=== PATIENT | male | born 1970 | race Caucasian/White ===

== ENCOUNTER 2017-11-25 14:31 | Emergency (ER) | payer OTHER ==
[2017-11-25 14:48] VITALS: BP 170/83
--- NOTE | 2017-11-25 15:04 | UC ---
Cardiac HPI - HPI Summary HPI Summary: 47 year old male with history of HTN, Crohn's here with chest tightness that started few hours ago [employer]. Patient states he was working on his desk, developed chest tightness with no sob. No n/v/d. 08/07 with no radiation. No other complaints. - History of Current Complaint Chief Complaint: UCChestPain Stated Complaint: CHEST PAIN Time Seen by Provider: 11/25/17 14:38 Hx Obtained From: Patient Onset/Duration: Gradual Onset Initial Severity: Mild Pain Intensity: 2 Character: Fast Associated Signs & Symptoms: Positive: Anxiety - Allergy/Home Medications Allergies/Adverse Reactions: Allergies Allergy/AdvReac Type Severity Reaction Status Date / Time CT dye Allergy Intermediate Hives Uncoded 11/25/17 14:43 Home Medications: Home Medications amLODIPine TAB* [Norvasc 5 mg TAB*] mg PO DAILY 11/25/17 [History] PMH/Surg Hx/FS Hx/Imm Hx - Surgical History Surgical History: Yes Surgery Procedure, Year, and Place: bowel resection 2001. Bowel resection r/t adhesions removal and appendectomy. left parotid resection and radiation 2002 - Family History Known Family History: Positive: Hypertension - Social History Alcohol Use: Daily Alcohol Amount: 1 beer/night Substance Use Type: None Smoking Status (MU): Never Smoked Tobacco Have You Smoked in the Last Year: No Review of Systems Cardiovascular: Chest Pain All Other Systems Reviewed And Are Negative: Yes Physical Exam Triage Information Reviewed: Yes Appearance: Well-Appearing Vital Signs: Initial Vital Signs Temp 36.7 C 11/25/17 14:45 Pulse 84 11/25/17 14:45 Resp 14 11/25/17 14:45 BP 170/83 11/25/17 14:45 Pulse Ox 94 11/25/17 14:45 Eye Exam: Normal ENT Exam: Normal Dental Exam: Normal Neck exam: Normal Neck: Positive: 1 Respiratory Exam: Normal Cardiovascular: Positive: Other: - tachy No m/g/r Abdominal Exam: Normal Musculoskeletal Exam: Normal Neurological Exam: Normal Psychological Exam: Normal Skin Exam: Normal Diagnostics - EKG Cardiac Rate: Tachycardia, Other Rate Cardiac Rhythm: Sinus: Normal Ectopy: PVCs ST Segment: Non-Specific - Differential Diagnoses - Chest Pain Differential Diagnosis/HQI/PQRI: Acute FL, Chest Wall, Lower Respiratory Infection - Differential Diagnoses - Hypertension Differential Diagnosis/HQI PQRI: Hypertension - Differential Diagnoses - Palpitations Differential Diagnosis/HQI/PQRI: AV Block - Clinical Impression Provider Diagnoses: Chest pain Discharge - Sign-Out/Discharge Documenting (check all that apply): Discharge/Admit/Transfer - Discharge Plan Condition: Good Disposition: HOME Referrals: Edwin Florez, PER DIEM NURSE [Primary Care Provider] - Additional Instructions: Please go to the Emergency Department for evaluation of chest pain. EKG showed bigeminy and sinus tachycardia @100. - Billing Disposition and Condition Condition: GOOD Disposition: HOME
== END 2017-11-25 15:49 | disposition home or self-care (01) ==
LOC: UCEAST 14:31
DX: R07.89 Other chest pain (principal); R00.0 Tachycardia, unspecified; F41.9 Anxiety disorder, unspecified; Z91.041 Radiographic dye allergy status; Z82.49 Family history of ischemic heart disease and other diseases of the circulatory system
CPT/HCPCS: 93005; 99212; G0463

== ENCOUNTER 2017-11-25 15:49 | Emergency (ER) | payer OTHER ==
[2017-11-25] MEDS ORDERED: Aspirin 81 mg CHEW TAB* 81 MG TAB.CHEW PO ONE (16:50)
[2017-11-25 17:15] LABS: ABS Basophils 0 10^3/ul (0-0.2); ABS Eosinophils 0.2 10^3/ul (0-0.6); ABS Lymphocytes 0.9 10^3/ul (1.0-4.8); ABS Monocytes 0.5 10^3/ul (0-0.8); ABS Neutrophils 4.8 10^3/ul (1.5-7.7); ABS Nucleated RBC 0 10^3/ul; Eosinophil % 2.5 % (0-6); Hematocrit 40 % (42-52); Hemoglobin 13.7 g/dl (14.0-18.0); Lymphocyte % 13.5 % (25-47); Mean Corpuscular HGB Conc 34 g/dl (31-36); Mean Corpuscular Hemoglobin 28 pg (27-31); Mean Corpuscular Volume 83 fL (80-94); Mean Platelet Volume 9.7 um3 (7.4-10.4); Nucleated Red Blood Cells % 0; Platelet Count 183 10^3/ul (150-450); Red Blood Count 4.88 10^6/ul (4.0-5.4); Red Cell Distribution Width 15 % (10.5-15); White Blood Count 6.3 10^3/ul (3.5-10.8)
--- NOTE | 2017-11-25 18:10 | RAD ---
HISTORY: Chest pain COMPARISONS: None VIEWS: 1: frontal portable view of the chest at 5:23 PM FINDINGS: LINES AND TUBES: None. CARDIOMEDIASTINAL SILHOUETTE: The cardiomediastinal silhouette is normal for portable technique. PLEURA: The costophrenic angles are sharp. No pleural abnormalities are noted. LUNG PARENCHYMA: The lungs are clear. ABDOMEN: The upper abdomen is clear. There is no subphrenic gas. BONES AND SOFT TISSUES: No bone or soft tissue abnormalities are noted. IMPRESSION: NO ACTIVE CARDIOPULMONARY DISEASE.
--- NOTE | 2017-11-25 18:35 | ED ---
Boo Vazquez Rebecca, scribed for Donte Pruett on 11/25/17 at 1641 . HPI Chest Pain - HPI Summary HPI Summary: Pt is a 47 y/o M referred from [facility] who presents to ED c/o CP. Pain began earlier today at 1400 while working at a computer and was intermittent for a few hours. Currently, he is in no pain. Sx aggravated by nothing, alleviated by spontaneous resolution. Denies N/V, dizziness and SOB. Usually does not have CP while walking. Last stress test 6-7 years ago. PMHx HTN. - History of Current Complaint Chief Complaint: EDChestPainROMI Time Seen by Provider: 11/25/17 16:25 Hx Obtained From: Patient Onset/Duration: Resolved Time of Onset: 14:00 Timing: Intermittent Current Severity: None Pain Intensity: 0 Pain Scale Used: 0-10 Numeric Aggravating Factor(s): Nothing Alleviating Factor(s): Spontaneous Resolution Associated Signs and Symptoms: Positive: Negative. Negative: Shortness of Breath, Nausea, Vomiting - Allergy/Home Medications Allergies/Adverse Reactions: Allergies Allergy/AdvReac Type Severity Reaction Status Date / Time CT dye Allergy Intermediate Hives Uncoded 11/25/17 14:43 Home Medications: Home Medications Budesonide CAP(NF) 6 mg PO DAILY 11/25/17 [History Confirmed 11/25/17] Ferrous Sulfate TAB* 325 mg PO BID 11/25/17 [History Confirmed 11/25/17] Mesalamine [Mesalamine] 4 cap PO DAILY 11/25/17 [History Confirmed 11/25/17] Terbinafine HCl 250 mg PO DAILY 11/25/17 [History Confirmed 11/25/17] amLODIPine TAB* [Norvasc 5 mg TAB*] 10 mg PO DAILY 11/25/17 [History Confirmed 11/25/17] PMH/Surg Hx/FS Hx/Imm Hx Endocrine/Hematology History: Denies: Hx Diabetes Cardiovascular History: Denies: Hx Hypertension, Hx Pacemaker/ICD GI History: Reports: Hx Crohn's Disease - pt had surgery in 2001 and reports being in remission Sensory History: Reports: Hx Contacts or Glasses - pt wears glasses Denies: Hx Hearing Aid Opthamlomology History: Reports: Hx Contacts or Glasses - pt wears glasses Psychiatric History: Denies: Hx Panic Disorder - Cancer History Cancer Type, 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 Bowel resection r/t adhesions removal and appendectomy. left parotid resection and radiation 2002 Infectious Disease History: No Infectious Disease History: Denies: Traveled Outside the [place] in Last 30 Days - Family History Known Family History: Positive: Hypertension - Social History Alcohol Use: Daily Alcohol Amount: 1 beer/night Substance Use Type: Reports: None Smoking Status (MU): Never Smoked Tobacco Have You Smoked in the Last Year: No Review of Systems Positive: Chest Pain Negative: Shortness Of Breath Negative: Vomiting, Nausea Neurological: Other - NEGATIVE: Dizziness All Other Systems Reviewed And Are Negative: Yes Physical Exam - Summary Physical Exam Summary: Appearance: Well appearing, no pain distress Skin: warm, dry, reflects adequate perfusion Head/face: normal Eyes: EOMI, LUIS E ENT: normal Neck: supple, non-tender Respiratory: CTA, breath sounds present Cardiovascular: RRR, pulses symmetrical ~ Abdomen: non-tender, soft Bowel: present Musculoskeletal: normal, strength/ROM intact Neuro: normal, sensory motor intact, A&Ox3 Triage Information Reviewed: Yes Vital Signs On Initial Exam: Initial Vitals Temp Pulse Resp BP Pulse Ox 98.0 F 82 15 173/100 95 11/25/17 16:00 11/25/17 16:00 11/25/17 16:00 11/25/17 16:00 11/25/17 16:00 Vital Signs Reviewed: Yes Diagnostics - Vital Signs Vital Signs Temp Pulse Resp BP Pulse Ox 11/25/17 16:00 98.0 F 82 15 173/100 95 - Laboratory Lab Results: Lab Results 11/25/17 11/25/17 11/25/17 Range/Units 17:00 17:00 17:00 WBC 6.3 (3.5-10.8) 10^3/ul RBC 4.88 (4.0-5.4) 10^6/ul Hgb 13.7 L (14.0-18.0) g/dl Hct 40 L (42-52) % MCV 83 (80-94) fL MCH 28 (27-31) pg MCHC 34 (31-36) g/dl RDW 15 (10.5-15) % Plt Count 183 (150-450) 10^3/ul MPV 9.7 (7.4-10.4) um3 Neut % (Auto) 76.4 (38-83) % Lymph % (Auto) 13.5 L (25-47) % [place] % (Auto) 7.2 H (0-7) % Eos % (Auto) 2.5 (0-6) % Baso % (Auto) 0.4 (0-2) % Absolute Neuts (auto) 4.8 (1.5-7.7) 10^3/ul Absolute Lymphs (auto) 0.9 L (1.0-4.8) 10^3/ul Absolute Monos (auto) 0.5 (0-0.8) 10^3/ul Absolute Eos (auto) 0.2 (0-0.6) 10^3/ul Absolute Basos (auto) 0 (0-0.2) 10^3/ul Absolute Nucleated RBC 0 10^3/ul Nucleated RBC % 0 Lactic Acid 0.5 (0.5-2.0) mmol/L Troponin I 0.00 (<0.04) ng/mL Result Diagrams: 11/25/17 17:00 Lab Statement: Any lab studies that have been ordered have been reviewed, and results considered in the medical decision making process. - Radiology CXR Xray Interpretation: No Acute Changes - NO ACTIVE CARDIOPULMONARY DISEASE. ED phsyician reviewed this report. Radiology Interpretation Completed By: Radiologist - EKG 1619 Cardiac Rate: NL - 87 bpm EKG Rhythm: Sinus Rhythm EKG Interpretation: No acute changes Re-Evaluation - Re-Evaluation First Eval Re-Evaluation Time: 18:28 Comment: Discussed results with the pt and he does not want to leave for his second troponin. Instead wants to leave [place]. Second Eval Re-Evaluation Time: 18:31 Comment: Upon reconsideration, he has agreed to stay for the second troponin which will be drawn at 2000. Chest Pain Course/Dx - Course Assessment/Plan: Pt is a 47 y/o M referred from [facility] who presents to ED c/o intermittent CP since 1400, now resolved. Sx alleviated by spontaneous resolution. Denies N/V, dizziness and SOB. Usually does not have CP while walking. Last stress test 6-7 years ago. PMHx HTN. Blood work was done with results including a troponin of 0.00. EKG is sinus rhythm with no acute changes. CXR reveals no acute findings. In the ED course, pt received ASA. Pt will be signed out to Dr. Cruz, pending dispo, awaiting repeat troponin, to be drawn at 2000. - Chest Pain Differential Diagnosis/HQI/PQRI: ACS, Chest Wall - Diagnoses Provider Diagnoses: Chest pain, Hypertension Discharge - Sign-Out/Discharge Documenting (check all that apply): Sign-Out Patient Signing out patient TO: Columba Cruz - Discharge Plan Condition: Stable Referrals: Edwin Florez, COPY PREPARER [Primary Care Provider] - - Billing Disposition and Condition Condition: STABLE The documentation as recorded by the Boo jack Rebecca accurately reflects the service I personally performed and the decisions made by Flynn pretty Emmanuel.
[2017-11-25 20:09] LABS: EGFR Non-African American 75.2 (>60)
--- NOTE | 2017-11-25 21:22 | ED ---
I, Josefina Hall, scribed for Columba Cruz MD on 11/25/17 at 2112 . Progress - Progress Note Progress Note: Pt signed out from Dr. Pruett, awaiting second trop test and dispo plan. Re-Evaluation - Re-Evaluation First Eval Re-Evaluation Time: 21:13 Comment: Pt informed of negative trop test. He would like to go home. Is agreeable to schedule outpatient stress test. Second Eval Re-Evaluation Time: 18:31 Comment: Upon reconsideration, he has agreed to stay for the second troponin which will be drawn at 1999. Course/Dx - Course Course Of Treatment: 47 y/o M referred from [facility] who presents to ED c/o intermittent CP since 1400, now resolved. Pt signed out from Dr. Pruett, pending dispo, awaiting repeat troponin, to be drawn at 1999. Negative trop level noted at 21:10. Pt will be discharged home with followup from cardiology for outpatient stress test. - Diagnoses Provider Diagnoses: Chest pain Discharge - Sign-Out/Discharge Documenting (check all that apply): Discharge/Admit/Transfer - Discharge Plan Condition: Stable Disposition: HOME Patient Education Materials: Chest Pain (ED), Cardiac Stress Test (DC) Referrals: Edwin Florez NP [Primary Care Provider] - As Soon As Possible Additional Instructions: Schedule an outpatient stress test with your primary care provider. Return to the Emergency Department for any new or worsening symptoms. The documentation as recorded by the Rafael jack Tiffany accurately reflects the service I personally performed and the decisions made by me, Columba Cruz MD.
[2017-11-25 21:23] VITALS: BP 134/89
== END 2017-11-25 21:25 | disposition home or self-care (01) ==
LOC: ED 15:49
DX: R07.9 Chest pain, unspecified (principal); I10 Essential (primary) hypertension; Z91.041 Radiographic dye allergy status
CPT/HCPCS: 36415; 71045; 80053; 83605; 84484; 85025; 93005; 99284; A9270-GY

== ENCOUNTER 2019-01-04 15:05 | Emergency (ER) | payer OTHER ==
--- OUTSIDE RECORDS SUMMARY | 2019-01-04 15:31 | XMS REPORT | Continuity of Care Document ---
:1970 External Reference #:[id number] Author Name Caterina Grady Care Team Providers Name Role Phone Tessy Hernández MD Primary Care Physician Unavailable Payers Date Identification Numbers Payment Provider Subscriber Expires: 2017 Policy Number: [id number] [employer] Kailee Diaz Group Number: [id number] [address] PayID: [id number] [place] [address] Policy Number: [id number] [employer] Kailee Diaz PayID: [id number] [address] [place] [address] Advance Directives Type Date Description Status Comment Other Directive 04/19/2018 Health Care Proxy Current and Verified Problems Active Problems Provider Date Crohn's disease Edwin Florez NP Onset: 06/17/2015 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 Onset: 04/20/2016 Essential hypertension Edwin Florez NP Onset: 11/11/2016 Family History Date Family Member(s) Observation Comments Father Diabetes Father Hypertension Occluded carotid artery -71 Mother Hypertension celiac- 69 Social History Type Date Description Comments Sex Unknown Marital Status Lives With ETOH Use Currently consumes 6-7 drinks/week alcohol Tobacco Use Start: Unknown End: Patient is a former Unknown smoker Recreational Drug Use Denies Drug Use Smoking Status Reviewed: 01/02/19 Patient is a former smoker Exercise Type/Frequency Does not exercise Allergies, Adverse Reactions, Alerts Active Allergies Reaction Severity Comments Date CT Contrast Dye hives all over face 06/14/2015 Medications Active Medications SIG Qnty Indications Ordering Date Provider Gabapentin 1 by mouth at night. 60caps G50.1 Edwin Florez NP 01/02/2019 300mg After three days may Capsules increase to one capsule morning and night. Hydrocodone-Acetamino take 1-2 tablets 15tabs G50.1 Edwin Florez NP 2018 phen every 8 hours for 5-325mg Tablets pain. Cyanocobalamin 1 milliliters 25ml D51.9 Edwin Florez NP 07/22/2018 (1000mcg) 1000mcg/ML Solution intramuscular once weekly x 4 weeks and then once monthly BD 3ML Luer-Yimi use as directed with 6units Edwin Florez NP 06/03/2017 Syringe/25G X 1" b12 injections. 25G X 1" 3 ML Misc Ferrous Sulfate take 1 tablet by 60tabs Edwin Florez NP 06/03/2017 mouth twice daily 325(65Fe) mg Tablets Amlodipine Besylate take 1 tablet by 30tabs I10 Edwin Florez NP 11/11/2016 mouth daily 10mg Tablets Lialda 4 by mouth every day 180tabs Mustapha 04/20/[address] Nini M.D. Budesonide ER 3 by mouth daily at Unknown 3mg Caps bedtime ER 24HR Motrin Ib 1 po as needed Unknown 200mg Tablets History Medications Qnasl Two sprays each 10.600gm H92.01 Edwin Florez NP 11/11/2018 - 80mcg/Act nostril once 01/01/2019 Aerosol daily. Amoxicillin 1 tablet every 12 14caps H66.91 Edwin Florez NP 07/22/2018 - 500mg hours for 7 days 07/28/2018 Capsules Doxycycline Hyclate 2 capsules 1 dose 2caps Tessy 10/23/2017 - jennifer Hernández M.D. 10/25/2017 100mg Capsules Doxycycline Hyclate take two tablets 2tabs S40.862A Edwin Florez NP 2017 - once. 08/26/2017 100mg Tablets Cyanocobalamin 1 milliliters 25ml D51.9 Edwin Florez NP 06/03/2017 - (1000mcg) 06/15/2018 1000mcg/ML Solution intramuscular once weekly x 4 weeks and then once monthly Vitamin D3 Ultra one tablet once 12tabs Edwin Florez NP 06/03/2017 - Potency weekly x 12 weeks. 11/10/2017 [id number] Tablets Luxiq Apply to affectred 100gm R21 Edwin Florez NP 05/13/2017 - 0.12% Foam area twice daily 11/10/2017 Augmentin 1 tablet by mouth 20tabs J06.9 Edwin Florez NP 04/07/2017 - 875-125mg q12 hours for 10 04/17/2017 Tablets days Fluticasone 2 sprays each 16gm J06.9 Edwin Florez NP 03/24/2017 - Propionate nostril qd. 05/13/2017 50mcg/Act Suspension Amlodipine Besylate 1 by mouth every 30tabs I10 Edwin Florez NP 10/08/2016 - day 11/11/2016 5mg Tablets Cyanocobalamin 1.0 milliliters 25ml D51.9 Edwin Florez NP 07/16/2015 - (1000mcg) 05/13/2017 1000mcg/ML Solution intramuscular [id number] is not on this medication. Ergocalciferol 1 tab by mouth 12caps Edwin Florez NP 06/18/2015 - every week x 12 11/11/2016 [id number] Capsules weeks-patient not on medication Asacol HD three once a day Unknown - 800mg d/c 11/11/2016 Tablets Azathioprine take four tablets Unknown - 50mg by mouth every day 10/08/2016 Tablets Medications Administered in Office Medication SIG Qnty Indications Ordering Provider Date B-12 Injection Edwin Florez NP 01/02/2019 Injection B-12 Injection Nurse Visit A 11/25/2018 Injection B-12 Injection Nurse Visit A 11/18/2018 Injection B-12 Injection Nurse Visit A 10/20/2018 Injection B-12 Injection Nurse Visit A 09/19/2018 Injection B-12 Injection Nurse Visit A 08/22/2018 Injection B-12 Injection Nurse Visit A 08/10/2018 Injection B-12 Injection Nurse Visit A 08/01/2018 Injection B-12 Injection Edwin Florez, [place] 07/22/2018 Injection B-12 Injection Edwin Florez NP 07/16/2015 Injection Immunizations CPT Code Status Date Vaccine Lot # [id number] Given 07/16/2015 Tdap - Tetanus/Diptheria/Acellular Pertussis [id number] Vital Signs Date Vital Result Comment 01/02/2019 4:02pm Height 67 inches 5'7" Weight 218.00 lb Heart Rate 75 /min BP Systolic 139 mmHg BP Diastolic 92 mmHg Body Temperature 98.0 F O2 % BldC Oximetry 94 % BMI (Body Mass Index) 34.1 kg/m2 11/11/2018 2:52pm Height 67 inches 5'7" Weight 219.38 lb Heart Rate 77 /min BP Systolic 137 mmHg BP Diastolic 88 mmHg Body Temperature 97.8 F O2 % BldC Oximetry 97 % BMI (Body Mass Index) 34.4 kg/m2 08/02/2018 3:30pm Height 67 inches 5'7" Weight 220.00 lb Heart Rate 85 /min BP Systolic Sitting 133 mmHg BP Diastolic Sitting 86 mmHg Body Temperature 98.1 F O2 % BldC Oximetry 98 % BMI (Body Mass Index) 34.5 kg/m2 07/22/2018 9:31am Height 67 inches 5'7" Weight 218.50 lb Heart Rate 72 /min BP Systolic 128 mmHg BP Diastolic 73 mmHg Body Temperature 98.5 F O2 % BldC Oximetry 95 % BMI (Body Mass Index) 34.2 kg/m2 04/19/2018 1:39pm Height 67 inches 5'7" Weight 219.00 lb Heart Rate 49 /min BP Systolic Sitting 122 mmHg BP Diastolic Sitting 80 mmHg Body Temperature 98.9 F Pain Level 3 general muscle pain O2 % BldC Oximetry 96 % BMI (Body Mass Index) 34.3 kg/m2 11/10/2017 2:47pm Height 67 inches 5'7" Weight 210.25 lb Heart Rate 94 /min BP Systolic 140 mmHg BP Diastolic 72 mmHg BP Systolic Recheck 128 mmHg BP Diastolic Recheck 74 mmHg Body Temperature 98.0 F O2 % BldC Oximetry 95 % BMI (Body Mass Index) 32.9 kg/m2 08/25/2017 11:56am Weight 210.25 lb Heart Rate 93 /min BP Systolic Sitting 128 mmHg BP Diastolic Sitting 80 mmHg O2 % BldC Oximetry 95 % 07/12/2017 4:39pm Weight 215.00 lb Heart Rate 81 /min BP Systolic 130 mmHg BP Diastolic 80 mmHg Body Temperature 97.4 F O2 % BldC Oximetry 97 % 05/13/2017 8:43am Heart Rate 77 /min BP Systolic Sitting 124 mmHg BP Diastolic Sitting 82 mmHg O2 % BldC Oximetry 98 % 04/07/2017 10:15am Weight 209.00 lb Heart Rate 88 /min BP Systolic Sitting 132 mmHg BP Diastolic Sitting 88 mmHg Body Temperature 99.2 F O2 % BldC Oximetry 97 % 03/24/2017 2:35pm Weight 209.00 lb Heart Rate 82 /min BP Systolic Sitting 138 mmHg BP Diastolic Sitting 84 mmHg Body Temperature 99.4 F L side & 97.8 R side O2 % BldC Oximetry 97 % 01/28/2017 9:07am Weight 207.00 lb Heart Rate 76 /min BP Systolic Sitting 138 mmHg BP Diastolic Sitting 96 mmHg BP Systolic Recheck 140 mmHg BP Diastolic Recheck 92 mmHg O2 % BldC Oximetry 97 % 11/11/2016 5:23pm Weight 209.00 lb Heart Rate 76 /min BP Systolic Sitting 140 mmHg BP Diastolic Sitting 90 mmHg O2 % BldC Oximetry 94 % 10/08/2016 2:57pm Height 66.5 inches 5'6.50" Weight 206.25 lb Heart Rate 79 /min BP Systolic 146 mmHg BP Diastolic 92 mmHg Body Temperature 98.5 F O2 % BldC Oximetry 98 % BMI (Body Mass Index) 32.8 kg/m2 04/20/2016 3:47pm Height 67.75 inches 5'7.75" Weight 209.25 lb Heart Rate 84 /min BP Systolic Sitting 148 mmHg BP Diastolic Sitting 90 mmHg Pain Level 5 BMI (Body Mass Index) 32.0 kg/m2 07/16/2015 9:29am Height 66.75 inches 5'6.75" Weight 207.00 lb Heart Rate 78 /min BP Systolic Sitting 128 mmHg BP Diastolic Sitting 80 mmHg Respiratory Rate 15 /min Body Temperature 97.0 F O2 % BldC Oximetry 96 % BMI (Body Mass Index) 32.7 kg/m2 06/14/2015 9:04am Height 66.75 inches 5'6.75" Weight 210.50 lb Heart Rate 91 /min BP Systolic Sitting 132 mmHg BP Diastolic Sitting 84 mmHg Body Temperature 98.8 F O2 % BldC Oximetry 98 % BMI (Body Mass Index) 33.2 kg/m2 Results Test Date Facility Test Result H/L Range Note CBC Auto Diff 11/11/2018 [facility] White Blood 5.1 10^3/uL N 3.5-10.[address] [place] [address] [phone] Red Blood Count 4.85 10^6/uL N 4.18-5.48 Hemoglobin 12.7 g/dL Low 14.0-18.0 Hematocrit 39 % Low 42-52 Mean Corpuscular Volume 80 fL N 80-94 Mean Corpuscular Hemoglobin 26 pg Low 27-31 Mean Corpuscular HGB Conc 33 g/dL N 31-36 Red Cell Distribution Width 16 % High 10.5-15 Platelet Count 157 10^3/uL N 150-450 Mean Platelet Volume 10.2 fL N 7.4-10.4 Abs Neutrophils 3.4 10^3/uL N 1.5-7.7 Abs Lymphocytes 0.9 10^3/uL Low 1.0-4.8 Abs Monocytes 0.6 10^3/uL N 0-0.8 Abs Eosinophils 0.2 10^3/uL N 0-0.6 Abs Basophils 0.0 10^3/uL N 0-0.2 Abs Nucleated RBC 0.0 10^3/uL Granulocyte % 66.9 % Lymphocyte % 17.1 % Monocyte % 11.8 % Eosinophil % 3.4 % Basophil % 0.8 % Nucleated Red Blood Cells % 0.4 Laboratory test 11/11/2018 [facility] C Reactive 20.07 mg/L High <8.[address] [place] [address] [phone] TSH (Thyroid Stim Horm) 2.72 mcIU/mL N 0.34-5.60 Protein 11/11/2018 [facility] Total 6.3 g/dL 6.3 - Electrophoresis [address] Protein(Pep) 7.9 [place] [address] [phone] Albumin 3.4 g/dL 3.4-4.7 Alpha-1 Globulin 0.2 g/dL 0.1-0.3 Alpha-2 Globulin 0.8 g/dL 0.6-1.0 Beta Globulin 1.0 g/dL 0.7-1.2 Gamma Globulin 1.0 g/dL 0.6-1.6 Albumin/Globulin Ratio 1.14 Impression See Comment 1 Laboratory test 11/11/2018 [facility] PSA Screening 1.082 ng/mL N 0-4.000 2 finding [address] [place], [place] [id number] [phone] Urinalysis 11/11/2018 [facility] Urine Color Yellow Profile [address] [place], [place] [id number] [phone] Urine Appearance Turbid Urine Specific [place] 1.032 High 1.010-1.030 Urine pH 5.0 N 5-9 Urine Urobilinogen Negative Negative Urine Ketones Trace Abnormal Negative Urine Protein 1+(30 mg/dL) Abnormal Negative Urine Leukocytes Negative Negative Urine Blood Negative Negative * * Abnormal Negative 3 Urine Nitrite Negative Negative Urine Bilirubin Negative Negative Urine Glucose Negative Negative Urine White Blood Cell Absent Absent Urine Red Blood Cell Absent Absent Urine Bacteria Absent Absent Laboratory test 11/11/2018 [facility] Pathologist Review (SEE NOTE) 4 finding [address] [place], [place] [id number] [phone] Lipid Profile 11/08/2018 [facility] Triglycerides 153 mg/dL 5 (Trig/Chol/HDL) [address] [place] [address] [phone] Cholesterol 147 mg/dL 6 HDL Cholesterol 33.4 mg/dL 7 LDL Cholesterol 83 mg/dL 8 Laboratory test 11/08/2018 [facility] Vitamin B12 281 pg/mL N 180-914 9 finding [address] [place] [address] [phone] Iron & Iron 11/08/2018 [facility] Iron 58 g/dL N 50-212 Binding Capacity [address] [place] [address] [phone] Unsaturated Iron Binding < 399 g/dL Total Iron Binding Capacity 414 g/dL N 250-450 Transferrin 296 mg/dL N 203-362 % Iron Saturation 14 % Low 15-55 Laboratory test 11/08/2018 [facility] Glucose 105 mg/dL High 70-100 finding [address] [place], [place] [id number] [phone] Lyme Western 04/19/2018 [facility] Lyme Disease Negative Negative Blot [address] [facility] [place] [place] [address] [phone] Lyme Disease IgG Bands Present p66,p41 kDa Lyme Disease IgM Ab WB Negative Negative Lyme Disease IgM Bands Present No bands detecte <SEE NOTE> kDa 10 Lyme Disease Interpretation See Comment 11 Laboratory test 04/19/2018 [facility] Lyme Disease Positive Negative [address] [place] [address] [phone] TSH (Thyroid Stim Horm) 2.39 mcIU/mL N 0.34-5.60 Iron & Iron Binding 04/19/2018 [facility] Iron 74 g/dL N 50- 212 [address] [place] [address] [phone] Unsaturated Iron Binding 378 g/dL Total Iron Binding Capacity 452 g/dL High 250-450 Transferrin 323 mg/dL N 203-362 % Iron Saturation 16 % N 15-55 Laboratory test 04/19/2018 [facility] Ferritin 22.2 ng/mL Low 24-336 finding [address] [place] [address] [phone] Comp Metabolic 04/19/2018 [facility] Sodium 139 mmol/L N 135- 145 Panel [address] [place] [address] [phone] Potassium 4.1 mmol/L N 3.5-5.0 Chloride 108 mmol/L N 101-111 Co2 Carbon Dioxide 25 mmol/L N 22-32 Anion Gap 6 mmol/L N 2-11 Glucose 83 mg/dL N 70-100 Blood Urea Nitrogen 16 mg/dL N 6-24 Creatinine 0.94 mg/dL N 0.67-1.17 BUN/Creatinine Ratio 17.0 N 8-20 Calcium 8.8 mg/dL N 8.6-10.3 Total Protein 6.4 g/dL N 6.4-8.9 Albumin 4.0 g/dL N 3.2-5.2 Globulin 2.4 g/dL N 2-4 Albumin/Globulin Ratio 1.7 N 1-3 Total Bilirubin 0.50 mg/dL N 0.2-1.0 Alkaline Phosphatase 78 U/L N 34-104 Alt 45 U/L N 7-52 Ast 33 U/L N 13-39 Egfr Non- 86.4 >60 Egfr 104.5 >60 13 CBC Auto Diff 04/19/2018 [facility] White Blood 5.7 10^3/uL N 3.5-10.[address] [place] [address] [phone] Red Blood Count 5.00 10^6/uL N 4.00-5.40 Hemoglobin 14.1 g/dL N 14.0-18.0 Hematocrit 41 % Low 42-52 Mean Corpuscular Volume 83 fL N 80-94 Mean Corpuscular Hemoglobin 28 pg N 27-31 Mean Corpuscular HGB Conc 34 g/dL N 31-36 Red Cell Distribution Width 15 % N 10.5-15 Platelet Count 183 10^3/uL N 150-450 Mean Platelet Volume 10.0 um3 N 7.4-10.4 Abs Neutrophils 4.1 10^3/uL N 1.5-7.7 Abs Lymphocytes 0.7 10^3/uL Low 1.0-4.8 Abs Monocytes 0.5 10^3/uL N 0-0.8 Abs Eosinophils 0.3 10^3/uL N 0-0.6 Abs Basophils 0 10^3/uL N 0-0.2 Abs Nucleated RBC 0 10^3/uL Granulocyte % 72.0 % N 38-83 Lymphocyte % 12.6 % Low 25-47 Monocyte % 9.4 % High 0-7 Eosinophil % 5.3 % N 0-6 Basophil % 0.7 % N 0-2 Nucleated Red Blood Cells % 0.2 CBC Auto Diff 11/25/2017 [facility] White Blood 6.3 10^3/uL N 3.5-10.[address] [place] [address] [phone] Red Blood Count 4.88 10^6/uL N 4.0-5.4 Hemoglobin 13.7 g/dL Low 14.0-18.0 Hematocrit 40 % Low 42-52 Mean Corpuscular Volume 83 fL N 80-94 Mean Corpuscular Hemoglobin 28 pg N 27-31 Mean Corpuscular HGB Conc 34 g/dL N 31-36 Red Cell Distribution Width 15 % N 10.5-15 Platelet Count 183 10^3/uL N 150-450 Mean Platelet Volume 9.7 um3 N 7.4-10.4 Abs Neutrophils 4.8 10^3/uL N 1.5-7.7 Abs Lymphocytes 0.9 10^3/uL Low 1.0-4.8 Abs Monocytes 0.5 10^3/uL N 0-0.8 Abs Eosinophils 0.2 10^3/uL N 0-0.6 Abs Basophils 0 10^3/uL N 0-0.2 Abs Nucleated RBC 0 10^3/uL Granulocyte % 76.4 % N 38-83 Lymphocyte % 13.5 % Low 25-47 Monocyte % 7.2 % High 0-7 Eosinophil % 2.5 % N 0-6 Basophil % 0.4 % N 0-2 Nucleated Red Blood Cells % 0 Laboratory test 11/25/2017 [facility] Lactic Acid 0.5 mmol/L N 0.5-2.0 14 finding [address] [place] [address] [phone] Troponin-I (TnI) 0.00 ng/mL <0.04 Comp Metabolic Panel 11/25/2017 [facility] Sodium 139 mmol/L N 139-145 [address] [place] [address] [phone] Potassium 3.4 mmol/L Low 3.5-5.0 Chloride 105 mmol/L N 101-111 Co2 Carbon Dioxide 25 mmol/L N 22-32 Anion Gap 9 mmol/L N 2-11 Glucose 135 mg/dL High 70-100 Blood Urea Nitrogen 14 mg/dL N 6-24 Creatinine 1.06 mg/dL N 0.67-1.17 BUN/Creatinine Ratio 13.2 N 8-20 Calcium 8.9 mg/dL N 8.6-10.3 Total Protein 6.8 g/dL N 6.4-8.9 Albumin 4.1 g/dL N 3.2-5.2 Globulin 2.7 g/dL N 2-4 Albumin/Globulin Ratio 1.5 N 1-3 Total Bilirubin 0.50 mg/dL N 0.2-1.0 Alkaline Phosphatase 64 U/L N 34-104 Alt 24 U/L N 7-52 Ast 22 U/L N 13-39 Egfr Non- 75.2 >60 Egfr 96.7 >60 15 Iron & Iron Binding 10/22/2017 [facility] Iron 59 g/dL N 50- [address] [place] [address] [phone] Unsaturated Iron Binding 360 g/dL Total Iron Binding Capacity 419 g/dL N 250-450 Transferrin 299 mg/dL N 203-362 % Iron Saturation 14 % Low 15-55 Laboratory test 10/22/2017 [facility] Ferritin 20.7 ng/mL Low 24-336 16 finding [address] [place] [address] [phone] Vitamin D Total 25(Oh) 45.1 ng/mL N 20-50 17 Vitamin B12 132 pg/mL Low 180-914 18 Lyme Disease Serology Positive Negative 19 Lyme Western 10/22/2017 [facility] Lyme Disease Negative Negative Blot [address] [facility] [place] [place] [address] [phone] Lyme Disease IgG Bands Present p41, p39, kDa Lyme Disease IgM Ab WB Negative Negative Lyme Disease IgM Bands Present No bands detecte <SEE NOTE> kDa 20 Lyme Disease Interpretation See Comment 21 Laboratory test 04/07/2017 [facility] In House Rapid Group A Strep Negative finding Lipid Profile 11/07/2016 [facility] Triglycerides 252 mg/dL N 22 (Trig/Chol/HDL) [address] [place] [address] [phone] Cholesterol 163 mg/dL N 23 HDL Cholesterol 28.8 mg/dL N 24 LDL Cholesterol 84 mg/dL N 25 Comp Metabolic Panel 11/07/2016 [facility] Sodium 139 mmol/L N 133-145 [address] [place] [address] [phone] Potassium 4.0 mmol/L N 3.5-5.0 Chloride 108 mmol/L N 101-111 Co2 Carbon Dioxide 26 mmol/L N 22-32 Anion Gap 5 mmol/L N 2-11 Glucose 101 mg/dL High 70-100 Blood Urea Nitrogen 16 mg/dL N 6-24 Creatinine 0.90 mg/dL N 0.67-1.17 BUN/Creatinine Ratio 17.8 N 8-20 Calcium 8.8 mg/dL N 8.6-10.3 Total Protein 6.3 g/dL Low 6.4-8.9 Albumin 3.9 g/dL N 3.2-5.2 Globulin 2.4 g/dL N 2-4 Albumin/Globulin Ratio 1.6 N 1-3 Total Bilirubin 0.40 mg/dL N 0.2-1.0 Alkaline Phosphatase 69 U/L N 34-104 Alt 20 U/L N 7-52 Ast 19 U/L N 13-39 Egfr Non- 91.3 N >60 Egfr 117.4 N >60 26 Laboratory test 08/26/2015 [facility] Surgical SEE RESULT [address] [place] [address] [phone] Comp Metabolic 06/14/2015 [facility] Sodium 136 mmol/L N 133- [address] [place] [address] [phone] Potassium 4.2 mmol/L N 3.5-5.0 Chloride 106 mmol/L N 101-111 Co2 Carbon Dioxide 26 mmol/L N 22-32 Anion Gap 4 mmol/L N 2-11 Glucose 93 mg/dL N 70-100 Blood Urea Nitrogen 13 mg/dL N 6-24 Creatinine 0.89 mg/dL N 0.67-1.17 BUN/Creatinine Ratio 14.6 N 8-20 Calcium 9.3 mg/dL N 8.6-10.3 Total Protein 6.7 g/dL N 6.4-8.9 Albumin 4.2 g/dL N 3.2-5.2 Globulin 2.5 g/dL N 2-4 Albumin/Globulin Ratio 1.7 N 1-3 Total Bilirubin 0.50 mg/dL N 0.2-1.0 Alkaline Phosphatase 58 U/L N 34-104 Alt 24 U/L N 7-52 Ast 20 U/L N 13-39 Egfr Non- 93.3 N >60 Egfr 120.0 N >60 28 Laboratory test 06/14/2015 [facility] Vitamin D 15.1 ng/mL Low 30-[address] Total 25(Oh) [place] [address] [phone] TSH (Thyroid Stim Horm) 1.33 ?IU/mL N 0.34-5.60 Vitamin B12 And 06/14/2015 [facility] Vitamin B12 223 pg/mL N 180-914 29 Folate Serum [address] [place] [address] [phone] Folic Acid (Folate) 19.73 ng/mL N >3.99 Iron & Iron Binding 06/14/2015 [facility] Iron 59 g/dL N 50- [address] [place] [address] [phone] Unsaturated Iron Binding 304 g/dL N Total Iron Binding Capacity 363 g/dL N 250-450 % Iron Saturation 16 % N 15-55 Laboratory test 06/14/2015 [facility] Ferritin 43.1 ng/mL N 24 -[address] [place] [address] [phone] CBC Auto Diff 06/14/2015 [facility] White Blood 6.8 10^3/uL N 3.5-10.[address] [place] [address] [phone] Red Blood Count 5.06 10^6/uL N 4.0-5.4 Hemoglobin 14.3 g/dL N 14.0-18.0 Hematocrit 43 % N 42-52 Mean Corpuscular Volume 85 fL N 80-94 Mean Corpuscular Hemoglobin 28 pg N 27-31 Mean Corpuscular HGB Conc 33 g/dL N 31-36 Red Cell Distribution Width 16 % High 10.5-15 Platelet Count 174 10^3/uL N 150-450 Mean Platelet Volume 10 um3 N 7.4-10.4 Abs Neutrophils 5.5 10^3/uL N 1.5-7.7 Abs Lymphocytes 0.7 10^3/uL Low 1.0-4.8 Abs Monocytes 0.4 10^3/uL N 0-0.8 Abs Eosinophils 0.1 10^3/uL N 0-0.6 Abs Basophils 0 10^3/uL N 0-0.2 Abs Nucleated RBC 0.01 10^3/uL N Granulocyte % 81.6 % N 38-83 Lymphocyte % 10.6 % Low 25-47 Monocyte % 6.1 % N 1-9 Eosinophil % 1.3 % N 0-6 Basophil % 0.4 % N 0-2 Nucleated Red Blood Cells % 0.1 N 1 RESULT: No apparent monoclonal protein on serum electrophoresis. Test Performed by: [facility] [address] [place] [address] 2 Serum levels of PSA measured using the [employer] [place] DXI Hybritech immunoassay should not be interpreted as absolute evidence of the presence or absence of disease. The PSA value should be used in conjunction with other pertinent clinical diagnostic procedures. The values obtained with different assay methods or kits cannot be used interchangeably. 3 *Ascorbic acid is present which may interfere with detection of blood. 4 Mild anemia with red cell indices suggestive of borderline or partially replete iron deficiency. Additional studies as clinically warranted. Reviewed by Dr. Tucker 5 Desirable: <150 Borderline High: 150-199 High: 200-499 Very High: >500 6 Desirable: <200 Borderline High: 200-239 High: >239 7 Low: <40 Desirable: 40-60 High: >60 8 Desirable: <100 Near Optimal: 100-129 Borderline High: 130-159 High: 160-189 Very High: >189 9 Normal Range 180 to 914 Indeterminate Range 145 to 180 Deficient Range <145 10 No bands detected 11 Specific serologic response to B. burgdorferi infection is not detected, but cannot rule out early infection during which low or undetectable antibody levels to B. burgdorferi may be present. If clinically indicated, a new serum specimen should be submitted in 7-14 days. ADDITIONAL INFORMATION Per CDC criteria, the Lyme IgG Immunoblot is interpreted as positive if IgG-class antibodies are detected to >=5 B. burgdorferi proteins, and the Lyme IgM Immunoblot is interpreted as positive if IgM-class antibodies are detected to >=2 B. burgdorferi proteins. Immunoblot patterns not meeting these criteria should not be interpreted as positive. Epitopes from certain B. burgdorferi proteins (e.g., p41) are conserved across other bacteria, which may lead to the detection of IgM- and/or IgG-class antibodies on the Lyme disease immunoblots in patients without Lyme disease. Immunoblot should only be ordered on specimens that are positive or equivocal by a FDA-licensed Lyme disease antibody screening test (e.g., EIA). Results of the Lyme IgM immunoblot should not be considered in patients with >=30 days of symptoms. Test Performed by: [facility] [place] [address] 12 Not diagnostic. Supplemental testing by immunoblot has been ordered by reflex. Test Performed by: [place] [address] 13 Because ethnic data is not always readily available, this report includes an eGFR for both -Americans and non- Americans. The National Kidney Disease Education Program (NKDEP) does not endorse the use of the MDRD equation for patients that are not between the ages of 18 and 70, are , have extremes of body size, muscle mass, or nutritional status, or are non- or non-. According to the National Kidney Foundation, irrespective of diagnosis, the stage of the disease is based on the level of kidney function: Stage Description GFR(mL/min/1.73 m(2)) 1 Kidney damage with normal or decreased GFR 90 2 Kidney damage with mild decrease in GFR 60-89 3 Moderate decrease in GFR 30-59 4 Severe decrease in GFR 15-29 5 Kidney failure <15 (or dialysis) 14 [facility] Severe Sepsis and Septic Shock Management Bundle Measure requires all lactic acids initially measuring >2.0 mmol/L be repeated. 15 Because ethnic data is not always readily available, this report includes an eGFR for both -Americans and non- Americans. The National Kidney Disease Education Program (NKDEP) does not endorse the use of the MDRD equation for patients that are not between the ages of 18 and 70, are , have extremes of body size, muscle mass, or nutritional status, or are non- or non-. According to the National Kidney Foundation, irrespective of diagnosis, the stage of the disease is based on the level of kidney function: Stage Description GFR(mL/min/1.73 m(2)) 1 Kidney damage with normal or decreased GFR 90 2 Kidney damage with mild decrease in GFR 60-89 3 Moderate decrease in GFR 30-59 4 Severe decrease in GFR 15-29 5 Kidney failure <15 (or dialysis) 16 September 17 September 18 Normal Range 180 to 914 Indeterminate Range 145 to 180 Deficient Range <145 19 Not diagnostic. Supplemental testing by immunoblot has been ordered by reflex. Test Performed by: [facility] [address] [place] [address] 20 No bands detected 21 Specific serologic response to B. burgdorferi infection is not detected, but cannot rule out early infection during which low or undetectable antibody levels to B. burgdorferi may be present. If clinically indicated, a new serum specimen should be submitted in 7-14 days. ADDITIONAL INFORMATION CDC criteria require >=5 bands for IgG or >=2 bands for IgM for the Immunoblot to be considered positive. Bands (e.g.,p41) may be detected in patients without Lyme disease, and patterns not meeting the CDC criteria should be interpreted with caution. Immunoblot should be ordered only on specimens that are positive or equivocal by a FDA-licensed Lyme disease antibody screening test (e.g., EIA). Test Performed by: [facility] [address] [place] [address] 22 Desirable <150 Borderline high 150-199 High 200-499 Very High >500 23 Desirable <200 Borderline high 200-239 High >239 24 Low <40 Desirable: 40-60 High: >60 25 Desirable: <100 mg/dL Near Optimal: 100-129 mg/dL Borderline High: 130-159 mg/dL High: 160-189 mg/dL Very High: >189 mg/dL 26 Because ethnic data is not always readily available, this report includes an eGFR for both -Americans and non- Americans. The National Kidney Disease Education Program (NKDEP) does not endorse the use of the MDRD equation for patients that are not between the ages of 18 and 70, are , have extremes of body size, muscle mass, or nutritional status, or are non- or non-. According to the National Kidney Foundation, irrespective of diagnosis, the stage of the disease is based on the level of kidney function: Stage Description GFR(mL/min/1.73 m(2)) 1 Kidney damage with normal or decreased GFR 90 2 Kidney damage with mild decrease in GFR 60-89 3 Moderate decrease in GFR 30-59 4 Severe decrease in GFR 15-29 5 Kidney failure <15 (or dialysis) 27 SEE RESULT BELOW Name: CHIO KOCH : [address]: Naveed Robles MD Acct: [id number] Unit: [id number] AGE: 45 Location: [facility] Re08/26/15 SEX: M Status: REG REF SPEC: [id number] LUIS ALBERTO: 08/26/1545 [facility] DR: Naveed Robles MD REQ: [id number] RECD: 08/26/15 STATUS: STACEY FERRARA DR: Edwin Florez [place] _ ORDERED: LEVEL IV FINAL DIAGNOSIS Colon, ileocolic anastomotic site, biopsy: -- Small bowel and colonic mucosa with acute superficial colitis, areas of ulceration and mucosal granulation tissue. See comment. -- No dysplasia identified. Comment: No crypt abscesses or granulomas are identified. The findings are nonspecific and may be related to recurrent regional enteritis or may be nonspecific changes within a post operative/anastomotic site. Correlation with clinical and colonoscopic findings suggested. CLINICAL HISTORY Crohn's disease involving ileal resection. POST-OPERATIVE DIAGNOSIS Colonoscopy into an ileocolonic anastomosis; inflammatory changes in neoterminal ileum with stenosis - biopsied. Normal colonic mucosa. Conclusion/Plan: Recurrent Crohn's disease in neoterminal ileum. GROSS DESCRIPTION The specimen is received in formalin labeled, Biopsies Ileum, and consists of four guzman-pink irregular soft tissue fragments ranging from 0.2 x 0.2 x 0.1 cm to 0.8 x 0.2 x 0.1 cm, which are submitted entirely in one cassette. Signed (signature on file) Drew Tucker MD 1438 END OF REPORT * ML=Testing performed at Main Lab DEPARTMENT OF PATHOLOGY, [address] [place] [address] Drew Tucker M.D. Director [facility] # [id number] 28 Because ethnic data is not always readily available, this report includes an eGFR for both -Americans and non- Americans. The National Kidney Disease Education Program (NKDEP) does not endorse the use of the MDRD equation for patients that are not between the ages of 18 and 70, are , have extremes of body size, muscle mass, or nutritional status, or are non- or non-. According to the National Kidney Foundation, irrespective of diagnosis, the stage of the disease is based on the level of kidney function: Stage Description GFR(mL/min/1.73 m(2)) 1 Kidney damage with normal or decreased GFR 90 2 Kidney damage with mild decrease in GFR 60-89 3 Moderate decrease in GFR 30-59 4 Severe decrease in GFR 15-29 5 Kidney failure <15 (or dialysis) 29 Normal Range 180 to 914 Indeterminate Range 145 to 180 Deficient Range <145 Procedures Date Code Description Status 01/02/2019 33164 Admin Of Inj Completed 11/25/2018 26041 Admin Of Inj Completed 11/18/2018 36709 Admin Of Inj Completed 11/11/2018 77918 Admin & Interp Of Health Risk Assessment w/ Patient Completed 10/31/2018 44121097 Colonoscopy Completed 10/20/2018 27380 Admin Of Inj Completed 09/19/2018 74293 Admin Of Inj Completed 08/22/2018 04612 Admin Of Inj Completed 08/10/2018 01077 Admin Of Inj Completed 08/01/2018 67534 Admin Of Inj Completed 07/22/2018 91265 Admin Of Inj Completed 06/16/2018 16713 Stress Test Completed 05/30/2018 65406 Removal Skin Tags Up To 15 Completed 04/19/2018 38962 EKG Tracing & Interpretation Completed 10/13/2017 22681 Dest Lesion Each Addl Lesion 2 Through 14 Each Completed 10/13/2017 01994 Destruction ALL Benign Or Premalignant Lesion (Other Completed Than [place] 04/14/2017 99355 Biopsy Skin Lesion Single Completed 07/16/2015 11824 Admin Of Inj Completed 09/24/2014 [id number] Colonoscopy Completed Encounters Type Date Location Provider Dx Diagnosis Office Visit 11/11/2018 [facility] Internal Edwin Florez NP Z00.01 Encounter for 3:00p Medicine [facility] general adult medical exam w abnormal findings D51.9 Vitamin B12 deficiency anemia, unspecified I10 Essential (primary) hypertension G47.30 Sleep apnea, unspecified R50.9 Fever, unspecified Z80.0 Family history of malignant neoplasm of digestive organs R35.0 Frequency of micturition H92.01 Otalgia, right ear Office Visit 08/02/2018 3:40p [facility] Internal Lindsey Dobson, H91.91 Unspecified Medicine [facility] hearing loss, right ear Office Visit 07/22/2018 9:20a [facility] Internal Edwin Florez D51.9 Vitamin B12 [facility] [place] deficiency anemia, unspecified H66.91 Otitis media, unspecified, right ear Office Visit 05/30/2018 3:30p [facility] Dermatology Oliver Seymour, L82.1 Other seborrheic MD keratosis D18.01 Hemangioma of skin and subcutaneous tissue L91.8 Other hypertrophic disorders of the skin Z78.9 Other specified health status R20.8 Other disturbances of skin sensation L53.8 Other specified erythematous conditions Office Visit 04/19/2018 1:40p [facility] Internal Yas Gregorio, R53.81 Other malaise [facility] I49.9 Cardiac arrhythmia, unspecified R07.89 Other chest pain Office Visit 11/10/2017 3:00p [facility] Internal Edwin Florez NP Z00.00 Encntr for [facility] general adult medical exam w/o abnormal findings I10 Essential (primary) hypertension E55.9 Vitamin D deficiency, unspecified D50.9 Iron deficiency anemia, unspecified E53.8 Deficiency of other specified B group vitamins Office Visit 10/13/2017 3:00p [facility] Sridevi Seymour L82.1 Other seborrheic MD keratosis L83 Acanthosis nigricans B35.1 Tinea unguium B00.1 Herpesviral vesicular dermatitis L57.0 Actinic keratosis L85.8 Other specified epidermal thickening Office Visit 08/25/2017 11:40a [facility] Internal Edwin Vikki, S40.862A Insect bite Medicine - [place] (nonvenomous) of [facility] left upper arm, init encntr Office Visit 07/12/2017 4:00p [facility] Internal Edwin Vikki, S01.81xD Laceration w/o Medicine - [place] foreign body of oth [facility] part of head, subs encntr Office Visit 05/13/2017 8:40a [facility] Internal Edwin Vikki, I10 Essential ( primary) Medicine - [place] hypertension [facility] R21 Rash and other nonspecific skin eruption Office Visit 04/14/2017 3:00p [facility] Dermatology Oliver Dawkinszer, L82.1 Other seborrheic MD keratosis L91.8 Other hypertrophic disorders of the skin L73.8 Other specified follicular disorders L81.4 Other melanin hyperpigmentation L23.9 Allergic contact dermatitis, unspecified cause D18.01 Hemangioma of skin and subcutaneous tissue C44.41 Basal cell carcinoma of skin of scalp and neck Office Visit 04/07/2017 10:20a [facility] Internal Edwinnicolasa Florez, J02.9 Acute pharyngitis, Medicine - [facility] [place] unspecified J06.9 Acute upper respiratory infection, unspecified D48.5 Neoplasm of uncertain behavior of skin Office Visit 03/24/2017 2:20p [facility] Internal Edwinnicolasa Florez, J06.9 Acute upper Medicine - [facility] [place] respiratory infection, unspecified Office Visit 01/28/2017 9:20a [facility] Internal Edwin Vikki, I10 Essential ( primary) Medicine - [facility] [place] hypertension Office Visit 11/11/2016 4:20p [facility] Internal Edwin Vikki, I10 Essential ( primary) Medicine - [facility] [place] hypertension R73.01 Impaired fasting glucose F34.1 Dysthymic disorder Office Visit 10/08/2016 3:00p [facility] Internal Edwin Vikki, [place] Z00.00 [facility]/o abnormal findings Z13.220 Encounter for screening for lipoid disorders Z13.1 Encounter for screening for diabetes mellitus I10 Essential (primary) hypertension F41.9 Anxiety disorder, unspecified F34.1 Dysthymic disorder D48.5 Neoplasm of uncertain behavior of skin Office Visit 04/20/2016 3:45p [facility] B37.84 Candidal otitis [facility] Baljit Terrazas [facility]scar [place] Office Visit 07/16/2015 9:00a [facility] Internal Edwin Florez NP Z00.00 Encntr for Medicine - general adult [facility] medical exam w/o abnormal findings Z13.220 Encounter for screening for lipoid disorders D51.9 Vitamin B12 deficiency anemia, unspecified Z13.1 Encounter for screening for diabetes mellitus Z23 Encounter for immunization Office Visit 06/14/2015 9:00a [facility] Internal Edwin Florez, K50.919 Crohn's disease, Medicine - [place] unspecified, with [facility] unspecified complications D50.9 Iron deficiency anemia, unspecified R53.83 Other fatigue D48.5 Neoplasm of uncertain behavior of skin R45.4 Irritability and anger Plan of Treatment Future Appointment(s):01/10/2019 3:00 pm - Nurse Visit [facility] at [facility] - Edwin Florez NPG50.1 Atypical facial painNew Medication:Gabapentin 300 mg - 1 by mouth at night. After three days may increase to one capsule morning and night.Hydrocodone-Acetaminophen 5-325 mg - take 1-2 tablets every 8 hours for pain.Comments:Start taking the Gabapentin, 300 mg nightly. If tolerated after a couple of days start taking 300 mgin the morning also. If the pain is severe again you can try the hydrocodone. We will contact you regarding the MRI. Call Dr. Connell's office regarding follow up.D51.9 Vitamin B12 deficiency anemia, unspecified
--- OUTSIDE RECORDS SUMMARY | 2019-01-04 15:31 | XMS REPORT | Continuity of Care Document ---
:1970 External Reference #:[id number] Author Name Garcia Connell M.D. Address [address] [place] [address] Care Team Providers Name Role Phone Vikki MAGANA, Edwin Care Team Information Director Software Unavailable Vikki MAGANA, Edwin Primary Care Physician Unavailable Payers Date Identification Numbers Payment Provider Subscriber Policy Number: [id number] Gient Kailee Diaz Group Number: [id number] [facility] [id number] Group Name: [id number] [address] [place] [address] PayID: [id number] Problems Active Problems Provider Date Chronic otitis externa Adan Terrazas MD Onset: 04/27/2016 Essential hypertension Onset: 11/23/2018 Family History Date Family Member(s) Observation Comments General Diabetes General Vertigo General Ulcerative Colitis Social History Type Date Description Comments Sex Unknown Occupation Research Staff Tobacco Use Start: Unknown Never Smoked Cigarettes Tobacco Use Start: Unknown Never Smoked Cigars Tobacco Use Start: Unknown Never Smoked A Pipe Smokeless Tobacco Never Used Smokeless Tobacco ETOH Use Currently occasionally consumes alcohol Tobacco Use Start: Unknown Patient has never smoked Smoking Status Reviewed: 12/14/18 Patient has never smoked Allergies, Adverse Reactions, Alerts Active Allergies Reaction Severity Comments Date Contrast Dye 03/30/2016 Medications Active Medications SIG Qnty Indications Ordering Provider Date Valium 5 mg by mouth 1tabs Garcia Ly 11/30/2018 5mg Tablets 1/2 hour prior Baljit Connell to MRI Lialda once daily with Vikki MAGANA, Edwin 1.2gm Tablets DR arlene Budesonide Vikki MAGANA, Edwin 3mg Caps DR Song Amlodipine Besylate take 1 tablet by Unknown 10mg mouth daily Tablets Ferrous Sulfate take 1 tablet by Unknown 325(65Fe) mouth twice a mg Tablets day History Medications Lorazepam take 1 tablet 20 1tabs Garcia Ly 11/23/2018 - 1mg Tablets minutes before Baljit Connell 11/30/2018 procedure Valium 1 by mouth 1/2 1tabs Garcia Ly 05/12/2016 - 10mg Tablets hour prior to Baljit Connell 06/03/2016 MRI Mometasone Furoate apply to both 30ml H60.63 Adna Terrazas MD 2015 - 0.1% ears twice a day 12/01/2017 Solution mix with mineral oil and drop in ear 2-3 drops Betamethasone apply to 15gm H60.63 Adan Terrazas MD 04/27/2016 - Dipropionate affected area 12/01/2017 0.05% twice a day Ointment Terbinafine HCL take 1 tablet by Unknown - 250mg mouth once daily 11/23/2018 Tablets for 3 Months Vital Signs Date Vital Result Comment 12/14/2018 3:17pm Weight 220.00 lb Weight 99.792 kg Height 67 inches 5'7" Height in cm's 170.2 cm BMI (Body Mass Index) 34.5 kg/m2 11/23/2018 2:44pm Weight 220.00 lb Weight 99.792 kg Height 67 inches 5'7" Height in cm's 170.2 cm BMI (Body Mass Index) 34.5 kg/m2 12/01/2017 2:57pm Weight 210.00 lb Weight 95.256 kg Height 67 inches 5'7" Height in cm's 170.2 cm BMI (Body Mass Index) 32.9 kg/m2 07/01/2016 3:19pm BP Systolic 140 mmHg BP Diastolic 93 mmHg Heart Rate 89 /min Respiratory Rate 17 /min Weight 205.00 lb Weight 92.988 kg Height 67 inches 5'7" Height in cm's 170.2 cm BMI (Body Mass Index) 32.1 kg/m2 06/03/2016 3:45pm BP Systolic 156 mmHg BP Diastolic 92 mmHg Heart Rate 82 /min Respiratory Rate 17 /min Weight 205.00 lb Weight 92.988 kg Height 67 inches 5'7" Height in cm's 170.2 cm BMI (Body Mass Index) 32.1 kg/m2 BP Systolic Sitting Resting Right Arm 0 mmHg BP Diastolic Sitting Resting Right Arm 0 mmHg 04/14/2016 9:41am BP Systolic 140 mmHg BP Diastolic 94 mmHg Heart Rate 85 /min Respiratory Rate 17 /min Weight 205.00 lb Weight 92.988 kg Height 67 inches 5'7" Height in cm's 170.2 cm BMI (Body Mass Index) 32.1 kg/m2 Results Test Date Facility Test Result H/L Range Note Laboratory test 07/01/2016 [facility] Non-Yardage Caller SEE RESULT 1 finding c/o Department of Laboratories [place] [address] [phone] 1 SEE RESULT BELOW Name: ZEECHIO : [address]: Garcia Connell MD Acct: [id number] Unit: [id number] AGE: 45 Location: [facility] Re07/01/16 SEX: M Status: REG REF SPEC: [id number] LUIS ALBERTO: 07/01/16-[address] [facility] [address]: Garcia Connell MD REQ: [id number] RECD: 07/02/16-1235 STATUS: SOUT _ ORDERED: FN ASP SUPERFIC COMMENTS: [id number] FINAL DIAGNOSIS Parotid, left, fine needle aspiration: Non-diagnostic- blood and macrophages only. A. PAROTID LEFT - LEFT PAROTID FINE NEEDLE ASPIRATION GROSS DESCRIPTION 4 - alcohol fixed slide(s) Needle rinse in Cytolyt solution for thin layer non-regional branch manager test. Signed (signature on file) Terra Hare MD 12/12 1233 END OF REPORT * ML=Testing performed at Main Lab DEPARTMENT OF PATHOLOGY, [address] [place] [address] Drew Tucker M.D. Director [facility] # [id number] Procedures Date Code Description Status 12/12/2018 60956 Tympanometry Completed 12/12/2018 45138 Comprehensive Audiogram Completed 07/01/2016 62635 Aspiration, Fine Needle Completed 06/03/2016 87509 Binocular Microscopy Completed 04/14/2016 92371 Binocular Microscopy Completed Encounters Type Date Location Provider Dx Diagnosis Office Visit 12/14/2018 [place],After Garcia Ly H90.3 Sensorineural hearing 3:30p 06/28/07 Jose Antonio Connell. loss, bilateral Z85.00 Personal history of malignant neoplasm of [facility] G50.1 Atypical facial pain J34.1 Cyst and mucocele of nose and nasal sinus Office Visit 11/23/2018 [place],After Garcia Hartman85.00 Personal 2:45p 06/28/07 Baljit Connell history of malignant neoplasm of [facility] H91.91 Unspecified hearing loss, right ear Office Visit 12/01/2017 [place],After Garcia Hartman85.00 Personal 3:15p 06/28/07 Baljit Connell history of malignant neoplasm of [facility] H61.23 Impacted cerumen, bilateral Office Visit 06/03/2016 [place],After Garcia Ly R09.81 Nasal 3:45p 06/28/07 Baljit Connell congestion L50.2 Urticaria due to cold and heat Z85.00 Personal history of malignant neoplasm of [facility] org H60.22 Malignant otitis externa, left ear Office Visit 04/27/2016 [place],After Adan Terrazas H60.63 Unspecified 8:30a 06/28/07 chronic otitis externa, bilateral Office Visit 04/14/2016 [place],After Garcia Ly Z85.00 Personal history 10:00a 06/28/07 Baljit Connell of malignant neoplasm of [facility] H60.22 Malignant otitis externa, left ear Plan of Treatment 12/14/2018 - Garcia Connell M.D.H90.3 Sensorineural hearing loss, bilateralComments:The patient had an audiogram that showed mild symmetrical bilateral sensorineural hearing loss centered at 2000Hz. This pattern is usually inherited. 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 He feels that he is developing some nonspecific symptoms in this area. I do not palpate anything on his examination ordered a MRI and there was nothing that showed up. .G50.1 Atypical facial painComments:Several days after he saw me he developed intense left upper tooth pain that radiated to that side of hs face. His dentist thought a sinusitis and put him on antibiotics. There was no evidence of sinusitis on the MRI. He is somewhat better but there is still discomfort. if he still has the pain after a month he will call to get a CT scan.J34.1 Cyst and mucocele of nose and nasal sinusComments:The MRI showed a cyst in the right maxillary sinus. This would not cause the pain on the left side. Asymptomatic Incidental findings like this are common and do not need treatment.
[2019-01-04 16:52] LABS: ABS Eosinophils 0.2 10^3/ul (0-0.6); ABS Lymphocytes 1.2 10^3/ul (1.0-4.8); ABS Monocytes 0.8 10^3/ul (0-0.8); ABS Neutrophils 5.9 10^3/ul (1.5-7.7); Eosinophil % 1.9 %; Hematocrit 42 % (42-52); Hemoglobin 13.9 g/dL (14.0-18.0); Lymphocyte % 14.8 %; Mean Corpuscular HGB Conc 33 g/dL (31-36); Mean Corpuscular Hemoglobin 27 pg (27-31); Mean Corpuscular Volume 82 fL (80-94); Mean Platelet Volume 9.4 fL (7.4-10.4); Nucleated Red Blood Cells % 0.1; Platelet Count 229 10^3/uL (150-450); Red Blood Count 5.14 10^6 /uL (4.18-5.48); Red Cell Distribution Width 16 % (10-15)
--- NOTE | 2019-01-04 16:53 | ED ---
Neurological HPI - HPI Summary HPI Summary: The patient is a 48 y/o M presenting to [facility] with a chief complaint of jaw pain over the last two weeks with a possible left facial droop today. He reports that he is currently taking Gabapentin to treat the jaw pain, and he is not currently in much pain, but he was told today that he appeared to have a left facial droop. Hx of HTN, Chrohnss disease. Surgical hx of left parotid resection and radiation, skin cancer. FHx of HTN. Nonsmoker, daily EtOH, no substance use. - History of Current Complaint Chief Complaint: EDNeurologicalDeficit Stated Complaint: JAW PAIN, LEFT SIDE FACIAL DROOP PER PT Time Seen by Provider: 01/04/19 15:42 Hx Obtained From: Patient Onset/Duration: Sudden Onset, Still Present Timing: Sudden Onset Onset Severity: Mild Current Severity: Mild Pain Intensity: 0 Pain Scale Used: 0-10 Numeric Character: Other: - mild left facial droop, jaw pain - Allergy/Home Medications Allergies/Adverse Reactions: Allergies Allergy/AdvReac Type Severity Reaction Status Date / Time Iodinated Contrast- Oral and Allergy Hives Verified 11/30/18 08:[address] dye Allergy Intermediate Hives Uncoded 11/04/18 14:50 Home Medications: Home Medications Gabapentin 300 mg PO BEDTIME 01/04/19 [History Confirmed 01/04/19] PMH/Surg Hx/FS Hx/Imm Hx Endocrine/Hematology History: Denies: Hx Diabetes Cardiovascular History: Reports: Hx Hypertension - SLIGHTLY ELEVATED ON MEDS Denies: Hx Hypercholesterolemia, Hx Pacemaker/ICD Respiratory History: Denies: Hx Asthma GI History: Reports: Hx Crohn's Disease - pt had surgery in 2001 and reports being in remission History: Denies: Hx Renal Disease Sensory History: Reports: Hx Contacts or Glasses - pt wears glasses Denies: Hx Hearing Aid Opthamlomology History: Reports: Hx Contacts or Glasses - pt wears glasses Psychiatric History: Denies: Hx Panic Disorder - Cancer History Cancer Type, 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 Bowel resection r/t adhesions removal and appendectomy. left parotid resection and radiation 2002. MOHS SURGERY-SKIN [place] Infectious Disease History: No Infectious Disease History: Denies: Traveled Outside the [place] in Last 30 Days - Family History Known Family History: Positive: Hypertension - Social History Alcohol Use: Daily Alcohol Amount: 1 beer/night Hx Substance Use: No Substance Use Type: Reports: None Hx Tobacco Use: No Smoking Status (MU): Never Smoked Tobacco Have You Smoked in the Last Year: No Review of Systems Positive: Other - jaw pain Neurological: Other - left facial droop All Other Systems Reviewed And Are Negative: Yes Physical Exam - Summary Physical Exam Summary: VITAL SIGNS: Reviewed. GENERAL: Patient is a well-developed and nourished male who is lying comfortable in the stretcher. Patient is not in any acute respiratory distress. HEAD AND FACE: No signs of trauma. No ecchymosis, hematomas or skull depressions. No sinus tenderness. EYES: PERRLA, EOMI x 2, No injected conjunctiva, no nystagmus. No photophobia. EARS: Hearing grossly intact. Ear canals and tympanic membranes are within normal limits. MOUTH: Oropharynx within normal limits. NECK: Supple, trachea is midline, no adenopathy, no JVD, no carotid bruit, no c- spine tenderness, neck with full ROM. No meningeal signs, no Kernig's or brudzinskis signs. CHEST: Symmetric, no tenderness at palpation. LUNGS: Clear to auscultation bilaterally. No wheezing or crackles. CVS: Regular rate and rhythm, S1 and S2 present, no murmurs or gallops appreciated. ABDOMEN: Soft, non-tender. No signs of distention. No rebound, no guarding, and no masses palpated. Bowel sounds are normal. EXTREMITIES: FROM in all major joints, no edema, no cyanosis or clubbing. NEURO: Alert and oriented x 3. No acute neurological deficits. Speech is normal and follows commands. SKIN: Dry and warm. GCS: 15. Triage Information Reviewed: Yes Vital Signs On Initial Exam: Initial Vitals Temp Pulse Resp BP Pulse Ox 98.1 F 89 18 188/111 96 01/04/19 15:17 01/04/19 15:17 01/04/19 15:17 01/04/19 15:17 01/04/19 15:17 Vital Signs Reviewed: Yes - Georgi Coma Scale Best Eye Response: 4 - Spontaneous Best Motor Response: 6 - Obeys Commands Best Verbal Response: 5 - Oriented Coma Scale Total: 15 Diagnostics - Vital Signs Vital Signs Temp Pulse Resp BP Pulse Ox 07/10/19 15:17 98.1 F 89 18 188/111 96 - Laboratory Result Diagrams: 01/04/19 16:35 01/04/19 16:35 Lab Statement: Any lab studies that have been ordered have been reviewed, and results considered in the medical decision making process. - CT Brain CT CT Interpretation Completed By: Radiologist Summary of CT Findings: No intracranial lesion is identified. ED physician has reviewed this radiology report. - EKG 1548 Cardiac Rate: NL - 84 BPM EKG Rhythm: Sinus Rhythm EKG Comparison: No Significant Change - Similar to EKG taken on 11/25/2017. Summary of EKG Findings: No ST elevations. 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: Both Correctly Best Gaze (Only Horizontal Eye Movement): Normal Visual Field Testing: No Visual Loss Facial Paresis-Pt to Smile & Close Eyes or Grimace Symmetry: Normal/Symmetrical Motor Function - Right Arm: No Drift-Holds 10 Seconds Motor Function - Left Arm: No Drift-Holds 10 Seconds Motor Function - Right Leg: No Drift-Holds 10 Seconds Motor Function - Left Leg: No Drift-Holds 10 Seconds Limb Ataxia-Must be out of Proportion to Weakness Present: Absent Sensory (Use Pinprick to Test Arms/Legs/Trunk/Face): Normal Best Language (Describe Picture, Name Items): No Aphasia Dysarthria (Read Several Words): Normal Extinction and Inattention: No Abnormality Total Score: 0 Re-Evaluation - Re-Evaluation First Eval Re-Evaluation Time: 16:40 Change: Improved Comment: I discussed findings and discharge with the patient. Course/Dx - Course Assessment/Plan: The patient is a 48 y/o M presenting to [facility] with a chief complaint of jaw pain over the last two weeks with a possible left facial droop today. He reports that he is currently taking Gabapentin to treat the jaw pain, and he is not currently in much pain, but he was told today that he appeared to have a left facial droop. Hx of HTN, Chrohnss disease. Surgical hx of left parotid resection and radiation, skin cancer. FHx of HTN. Nonsmoker, daily EtOH , no substance use. Initially when the patient came in the NIH score is equal to 0. I do not see any facial drooping or any other neurological deficits. The GCS is equal to 15. Blood work without any significant abnormality. Head CT impression: No acute intracranial pathology. Multiple neurological exams: Negative for any acute neurological deficits. At this point, I discussed all the findings and test results with the patient. He was instructed to return to the emergency room immediately if any of the symptoms return or worsen. They understand and agree. Neurological exam before discharge: Patient is alert and oriented x 3. No acute neurological deficits. Patient vital signs are stable. Patient is to follow up with PCP in the next 2 3 days. They understand and agree. Plan of care was discussed with the patient and patient understands and agrees with the plan of care. All questions were answered at patient satisfaction. There were no further complaints or concerns. - Diagnoses Provider Diagnoses: Chronic jaw pain Discharge - Sign-Out/Discharge Documenting (check all that apply): Patient Departure - Patient will be discharged home. Patient Received Moderate/Deep Sedation with Procedure: No - Discharge Plan Condition: Stable Disposition: HOME Patient Education Materials: Temporomandibular Disorder (ED) Referrals: Edwin Florez NP [Primary Care Provider] - 3 Days Additional Instructions: Follow up with your primary care provider in 2-3 days. RETURN TO THE EMERGENCY DEPARTMENT FOR ANY NEW OR WORSENING SYMPTOMS. - Billing Disposition and Condition Condition: STABLE Disposition: Home - Attestation Statements Document Initiated by Merlene: Yes Documenting Scribe: Claudia Ramos Provider For Whom Merlene is Documenting (Include Credential): Dr. Vipul Johnson MD Scribe Attestation: Claudia Vazquez scribed for Dr. Vipul Johnson MD on 01/04/19 at 1849. Scribe Documentation Reviewed: Yes Provider Attestation: The documentation as recorded by the Claudia jack accurately reflects the service I personally performed and the decisions made by me, Dr. Vipul Johnson MD Status of Scrjocelin Document: Ready
[2019-01-04 16:54] LABS: Urine Appearance Clear; Urine Bilirubin Negative (Negative); Urine Blood Negative (Negative); Urine Color Yellow; Urine Glucose Negative (Negative); Urine Ketones Negative (Negative); Urine Nitrite Negative (Negative); Urine Protein Negative (Negative); Urine Specific Gravity 1.023 (1.010-1.030); Urine Urobilinogen Negative (Negative)
[2019-01-04 17:01] LABS: INR 1.09 (0.82-1.09)
[2019-01-04 17:11] LABS: ALT 34 U/L (7-52); AST 21 U/L (13-39); Albumin 4.2 g/dL (3.2-5.2); Albumin/Globulin Ratio 1.6 (1-3); Alkaline Phosphatase 70 U/L (34-104); Anion Gap 8 mmol/L (2-11); BUN/Creatinine Ratio 15.6 (8-20); Blood Urea Nitrogen 15 mg/dL (6-24); CO2 Carbon Dioxide 25 mmol/L (22-32); Calcium 9.2 mg/dL (8.6-10.3); Chloride 107 mmol/L (101-111); EGFR African American 101.6 (>60); Globulin 2.7 g/dL (2-4); Glucose 92 mg/dL (70-100); Potassium 3.6 mmol/L (3.5-5.0); Sodium 140 mmol/L (135-145); Total Protein 6.9 g/dL (6.4-8.9)
[2019-01-04 17:16] LABS: Alcohol < 10 mg/dL (<10)
[2019-01-04 17:18] LABS: Urine Benzodiazepine Screen None Detected (None Detect); Urine Opiates Screen None Detected (None Detect)
[2019-01-04 17:34] VITALS: BP 142/80
== END 2019-01-04 17:27 | disposition home or self-care (01) ==
LOC: ED 15:05
DX: R68.84 Jaw pain (principal); I10 Essential (primary) hypertension; Z86.018 Personal history of other benign neoplasm; Z91.041 Radiographic dye allergy status
CPT/HCPCS: 36415; 70450; 80053; 80307; 80320; 81003; 83605; 84484; 85025; 85610; 93005; 99283; G0480

== ENCOUNTER 2019-06-15 18:18 | Emergency (ER) | payer OTHER ==
[2019-06-15 19:07] LABS: ABS Eosinophils 0.2 10^3/ul (0-0.6); ABS Lymphocytes 1.4 10^3/ul (1.0-4.8); ABS Monocytes 0.6 10^3/ul (0-0.8); ABS Neutrophils 5.6 10^3/ul (1.5-7.7); Eosinophil % 2.2 %; Hematocrit 41 % (42-52); Hemoglobin 14.2 g/dL (14.0-18.0); Lymphocyte % 18.1 %; Mean Corpuscular HGB Conc 34 g/dL (31-36); Mean Corpuscular Hemoglobin 28 pg (27-31); Mean Corpuscular Volume 83 fL (80-94); Mean Platelet Volume 9.6 fL (7.4-10.4); Nucleated Red Blood Cells % 0.2; Platelet Count 216 10^3/uL (150-450); Red Blood Count 5.01 10^6 /uL (4.18-5.48); Red Cell Distribution Width 14 % (10-15); White Blood Count 7.7 10^3/uL (3.5-10.8)
--- NOTE | 2019-06-15 19:14 | ED ---
Hypertension - HPI Summary HPI Summary: 48-year-old male with significant past medical history of hypertension treated with 10 mg of amlodipine and Crohn's disease presents to emergency department today due to hypertension noted at "200/100". Patient states he was having a home infusion of Entyvio when the nurse administering this medication noticed blood pressure was significantly elevated at approximately 200/100. Patient states his blood pressure is typically 160 systolic. Patient otherwise feels fine and does not complain of changes in vision, headache, shortness of breath, chest pain, abdominal pain, blood in his urine, fever, rash. Patient denies any recent recreational drug use, tobacco use, alcohol use. Patient states his current sore throat. Family history and social history noncontributory. - History of Current Complaint Chief Complaint: EDHypertension Stated Complaint: HYPERTENSIVE PER EMS Time Seen by Provider: 06/15/19 18:46 Hx Obtained From: Patient Onset/Duration: Started Hours Ago Timing: Constant Current Medications: [place] Amanda - 10 mg amlodipine daily - Risk Factors Cardiac Risk Factors: Hypertension - Allergies/Home Medications Allergies/Adverse Reactions: Allergies Allergy/AdvReac Type Severity Reaction Status Date / Time Iodinated Contrast Media Allergy Hives Verified 03/08/19 15:40 [Iodinated Contrast- Oral and IV Dye] CT dye Allergy Intermediate Hives Uncoded 03/08/19 15:40 PMH/Surg Hx/FS Hx/Imm Hx Endocrine/Hematology History: Denies: Hx Diabetes Cardiovascular History: Reports: Hx Hypertension - SLIGHTLY ELEVATED ON MEDS Denies: Hx Hypercholesterolemia, Hx Pacemaker/ICD Respiratory History: Denies: Hx Asthma GI History: Reports: Hx Crohn's Disease - pt had surgery in 2001 and reports being in remission History: Denies: Hx Renal Disease Sensory History: Reports: Hx Contacts or Glasses - pt wears glasses Denies: Hx Hearing Aid Opthamlomology History: Reports: Hx Contacts or Glasses - pt wears glasses Psychiatric History: Denies: Hx Panic Disorder - Cancer History Cancer Type, 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 Bowel resection r/t adhesions removal and appendectomy. left parotid resection and radiation 2002. MOHS SURGERY-SKIN [place] Infectious Disease History: No Infectious Disease History: Denies: Traveled Outside the [place] in Last 30 Days - Family History Known Family History: Positive: Hypertension - Social History Alcohol Use: Occasionally Alcohol Amount: 1 beer/night Hx Substance Use: No Substance Use Type: Reports: None Hx Tobacco Use: No Smoking Status (MU): Never Smoked Tobacco Have You Smoked in the Last Year: No Review of Systems Constitutional: Negative Eyes: Negative ENT: Negative Cardiovascular: Negative Respiratory: Negative Gastrointestinal: Negative Genitourinary: Negative Musculoskeletal: Negative Skin: Negative Neurological: Negative Psychological: Normal All Other Systems Reviewed And Are Negative: Yes Physical Exam Triage Information Reviewed: Yes Vital Signs On Initial Exam: Initial Vitals Temp Pulse Resp BP Pulse Ox 99.5 F 88 14 172/104 96 06/15/19 18:23 06/15/19 18:23 06/15/19 18:23 06/15/19 18:23 06/15/19 18:23 Vital Signs Reviewed: Yes Appearance: Positive: Well-Appearing, No Pain Distress, Well-Nourished Skin: Positive: Warm, Skin Color Reflects Adequate Perfusion Eyes: Positive: EOMI, LUIS E ENT: Positive: Hearing grossly normal Respiratory/Lung Sounds: Positive: Clear to Auscultation, Breath Sounds Present Cardiovascular: Positive: RRR, S1, S2 Abdomen Description: Positive: No Organomegaly, Soft. Negative: Distended, Guarding Bowel Sounds: Positive: Present Musculoskeletal: Positive: Strength/ROM Intact Neurological: Positive: Sensory/Motor Intact, Alert, Oriented to Person Place, Time, Speech Normal Psychiatric: Positive: Normal AVPU Assessment: Alert Procedures - Sedation Patient Received Moderate/Deep Sedation with Procedure: No Diagnostics - Vital Signs Vital Signs Temp Pulse Resp BP Pulse Ox 06/15/19 18:27 62 16 172/104 95 06/15/19 18:23 99.5 F 88 14 172/104 96 - Laboratory Lab Results: Lab Results 06/15/19 06/15/19 Range/Units 18:58 18:58 WBC 7.7 (3.5-10.8) 10^3/uL RBC 5.01 (4.18-5.48) 10^6 /uL Hgb 14.2 (14.0-18.0) g/dL Hct 41 L (42-52) % MCV 83 (80-94) fL MCH 28 (27-31) pg MCHC 34 (31-36) g/dL RDW 14 (10-15) % Plt Count 216 (150-450) 10^3/uL MPV 9.6 (7.4-10.4) fL Neut % (Auto) 72.0 % Lymph % (Auto) 18.1 % Sutton % (Auto) 7.2 % Eos % (Auto) 2.2 % Baso % (Auto) 0.5 % Absolute Neuts (auto) 5.6 (1.5-7.7) 10^3/ul Absolute Lymphs (auto) 1.4 (1.0-4.8) 10^3/ul Absolute Monos (auto) 0.6 (0-0.8) 10^3/ul Absolute Eos (auto) 0.2 (0-0.6) 10^3/ul Absolute Basos (auto) 0.0 (0-0.2) 10^3/ul Absolute Nucleated RBC 0.0 10^3/ul Nucleated RBC % 0.2 VBG pH 7.43 (7.32-7.43) VBG pCO2 43 (41-51) mmHg VBG pO2 42.0 (35-45) mmHg VBG HCO3 27.3 (24-28) mmol/L VBG O2 Saturation 78.4 (70-80) % VBG Base Excess 3.7 (0.0-4.0) mmol/L Result Diagrams: 06/15/19 18:58 06/15/19 18:58 Lab Statement: Any lab studies that have been ordered have been reviewed, and results considered in the medical decision making process. Hypertension Course/Dx - Course Course Of Treatment: Patient evaluated for hypertension. The patient vitals were stable other than blood pressure of 166/108. Laboratory studies were drawn to investigate and organ damage and returned within normal limits. Patient was given 2 g of magnesium sulfate IV for hypertension. After magnesium administration patient's blood pressure was reduced to 148/92. Patient was asymptomatic for end organ damage during the entirety of his stay. He is told to follow-up with his primary care provider for that evaluation management. - Diagnoses Differential Diagnosis/HQI PQRI: Angina, Endocrine Disorder, Hypertension, Hypertensive Crisis, Hyperthyroidism, Renal Disease Provider Diagnoses: Hypertension Discharge ED - Sign-Out/Discharge Documenting (check all that apply): Patient Departure - Discharge Plan Condition: Stable Disposition: HOME Patient Education Materials: Hypertension (ED) Referrals: Edwin Florez NP [Primary Care Provider] - 3 Days Additional Instructions: You were seen in the emergency department today for hypertension. There appeared to be no acute cause for hypertension and your hypertension has since resolved. Please continue to take your outpatient antihypertensive medication as directed. Please follow-up with your primary care provider for further evaluation and management in 5 days. Return to activity as tolerated. Please return to the emergency department immediately if you developed any new or worsening symptoms. - Billing Disposition and Condition Condition: STABLE Disposition: Home
[2019-06-15 19:16] LABS: INR 1.09 (0.82-1.09)
[2019-06-15 19:25] LABS: BUN/Creatinine Ratio 14.6 (8-20); Calcium 8.7 mg/dL (8.6-10.3); EGFR African American 93.7 (>60); EGFR Non-African American 77.4 (>60); Potassium 3.4 mmol/L (3.5-5.0)
[2019-06-15 19:26] LABS: Troponin I 0.01 ng/mL (<0.03)
--- OUTSIDE RECORDS SUMMARY | 2019-06-15 19:28 | XMS REPORT | Continuity of Care Document ---
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/2015 Iron deficiency anemia Edwin Florez FNP Onset: 06/17/2015 Sleep apnea Edwin Florez FNP Onset: 06/14/2015 Vitamin B-complex deficiency Joy Mendoza PA-C Onset: 11/23/2017 Crohn's disease of small intestine Joy Mendoza PA-C Onset: 2016 Social History Type Date Description Comments Sex Unknown ETOH Use Consumes 1 beer per day Tobacco Use Start: Unknown Patient has never smoked Smoking Status Reviewed: 04/25/19 Patient has never smoked Allergies, Adverse Reactions, Alerts Active Allergies Reaction Severity Comments Date Contrast Dye 07/03/2015 Medications Active Medications SIG Qnty Indications Ordering Date Provider Entyvio every 8 weeks Lorena 04/25/2019 300mg Solution MD Jenna Rec Suprep Bowel Prep Kit as directed 1units Lorena 04/25/2019 MD Jenna 17.5-3.13-1.6GM/177ML Solution Cholestyramine use 1 packet once 60units Lorena 12/13/2018 4gm Packet to twice daily MD Jenna Budesonide take 3 capsules 270caps Lorena 09/05/[address] by mouth once MD Jenna Part daily Cyanocobalamin 500mcg Per 10ml Naveed Baum 07/20/2016 1000mcg/ML Injection Weekly Travis JUAREZ Solution X 2 Then Every Month After Amlodipine Besylate 1 by mouth every Unknown 10mg day Tablets Ferrous Sulfate take 1 tablet by Unknown 325(65Fe) mouth twice a day mg Tablets Medications Administered in Office Medication SIG Qnty Indications Ordering Provider Date B12 To 500MG Nurse 09/02/2016 Injection B12 To 500MG Nurse 08/13/2016 Injection Methotrexate Sodium 50 MG Naveed Robles MD 09/11/2015 (Methotrexate LPF) Injection Immunizations Description No Information Available Vital Signs Date Vital Result Comment 04/25/2019 2:32pm Height 67 inches 5'7" Weight 222.00 lb BP Systolic 148 mmHg BP Diastolic 83 mmHg Heart Rate 90 /min BMI (Body Mass Index) 34.8 kg/m2 12/13/2018 8:26am Height 67 inches 5'7" Weight 220.00 lb BMI (Body Mass Index) 34.5 kg/m2 Results Test Acquired Date Facility Test Result H/L Range Note CBC W/Auto 05/27/2019 [facility] White Blood 10.0 10^3/uL Normal 3.5-10.8 Differential(! Count ) Red Blood Count 5.13 10^6/uL Normal 4.18-5.48 Hemoglobin 14.5 g/dL Normal 14.0-18.0 Hematocrit 43 % Normal 42-52 Mean Corpuscular Volume 84 fL Normal 80-94 Mean Corpuscular Hemoglobin 28 pg Normal 27-31 Mean Corpuscular HGB Conc 34 g/dL Normal 31-36 Red Cell Distribution Width 15 % Normal 10-15 Platelet Count 210 10^3/uL Normal 150-450 Mean Platelet Volume 10.5 fL High 7.4-10.4 Abs Neutrophils 8.1 10^3/uL High 1.5-7.7 Abs Lymphocytes 1.2 10^3/uL Normal 1.0-4.8 Abs Monocytes 0.6 10^3/uL Normal 0-0.8 Abs Eosinophils 0.1 10^3/uL Normal 0-0.6 Abs Basophils 0.0 10^3/uL Normal 0-0.2 Abs Nucleated RBC 0.0 10^3/uL Granulocyte % 81.0 % Lymphocyte % 12.0 % Monocyte % 5.8 % Eosinophil % 0.8 % Basophil % 0.4 % Nucleated Red Blood Cells % 0.0 Iron/Uibc/Tibc/%Sat 05/27/2019 [facility] [place] 51 g/dL Normal 50-212 Unsaturated Iron Binding < 426 g/dL Total Iron Binding Capacity 441 g/dL Normal 250-450 Transferrin 315 mg/dL Normal 203-362 % Iron Saturation 12 % Low 15-55 Laboratory test finding 05/27/2019 [facility] [place] Calprotectin 163 g/G Abnormal 1 Vitamin B12 187 pg/mL Normal 180-914 2 Laboratory test finding 05/27/2019 [facility] [place] C Reactive Protein 7.29 mg/L Normal <8.01 Ferritin 17.7 ng/mL Low 24-336 Vitamin D Total 25(Oh) 20.8 ng/mL Normal 20-50 3 Quantiferon-TB Gold Plus 02/10/2019 [facility] [place] QuantiferonTb Gold Plus Negative Negative 4 Result TB1 Ag minus Nil Result -0.01 IU/mL TB2 Ag minus Nil Result 0.00 IU/mL Mitogen minus Nil Result 8.66 IU/mL Nil Result 0.03 IU/mL Laboratory test finding 02/10/2019 [facility] [place] Calprotectin 106.4 g/G Abnormal 5 Hepatitis C Antibody 01/31/2019 [facility] [place] HCV Index 0.07 s/c Hepatitis C Antibody Negative Negative Chronic Hepatitis 01/31/2019 [facility] [place] Hepatitis B Surface Ag Negative Negative 6 Panel(!) Hepatitis B Chikis AB Titer Not Immune Abnormal Immune 7 Hepatitis B Core AB Total Negative Negative 8 Hepatitis A Igg Antibody, Serum Positive 9 Laboratory test finding 01/31/2019 [facility] [place] Ferritin 20.9 ng/mL Low 24-336 10 Iron & Iron Binding Capacity 01/31/2019 [facility] [place] Iron 44 g/dL Low 50-212 Unsaturated Iron Binding < 433 g/dL Total Iron Binding Capacity 448 g/dL Normal 250-450 Transferrin 320 mg/dL Normal 203-362 % Iron Saturation 10 % Low 15-55 Varicella Zoster Igg AB 01/31/2019 [facility] [place] Varicella-Zoster IgG Antibody Positive 11 Varicella IgG Antibody Index 7.1 12 Laboratory test finding 01/31/2019 [facility] [place] Rubella Screen Immune Immune 13 Rubeola Measles Igg AB 01/31/2019 [facility] [place] Rubeola (Measles) IgG Positive 14 Antibody Rubeola IgG Antibody Index 1.3 15 Mumps Igg 01/31/2019 [facility] [place] Mumps Virus IgG Antibody Positive 16 Mumps IgG Antibody Index 1.8 17 Comp Metabolic Panel 01/31/2019 [facility] [place] Sodium 140 mmol/L Normal 135-145 Potassium 3.7 mmol/L Normal 3.5-5.0 Chloride 106 mmol/L Normal 101-111 Co2 Carbon Dioxide 27 mmol/L Normal 22-32 Anion Gap 7 mmol/L Normal 2-11 Glucose 106 mg/dL High 70-100 Blood Urea Nitrogen 17 mg/dL Normal 6-24 Creatinine 0.90 mg/dL Normal 0.67-1.17 BUN/Creatinine Ratio 18.9 Normal 8-20 Calcium 9.3 mg/dL Normal 8.6-10.3 Total Protein 6.7 g/dL Normal 6.4-8.9 Albumin 4.3 g/dL Normal 3.2-5.2 Globulin 2.4 g/dL Normal 2-4 Albumin/Globulin Ratio 1.8 Normal 1-3 Total Bilirubin 0.40 mg/dL Normal 0.2-1.0 Alkaline Phosphatase 72 U/L Normal 34-104 Alt 21 U/L Normal 7-52 Ast 19 U/L Normal 13-39 Egfr Non- 90.4 >60 Egfr 109.4 >60 18 CBC Auto Diff 01/31/2019 [facility] [place] White Blood Count 6.9 10^3/uL Normal 3.5- 10.8 Red Blood Count 5.22 10^6/uL Normal 4.18-5.48 Hemoglobin 14.5 g/dL Normal 14.0-18.0 Hematocrit 43 % Normal 42-52 Mean Corpuscular Volume 83 fL Normal 80-94 Mean Corpuscular Hemoglobin 28 pg Normal 27-31 Mean Corpuscular HGB Conc 34 g/dL Normal 31-36 Red Cell Distribution Width 16 % High 10-15 Platelet Count 186 10^3/uL Normal 150-450 Mean Platelet Volume 10.5 fL High 7.4-10.4 Abs Neutrophils 5.4 10^3/uL Normal 1.5-7.7 Abs Lymphocytes 1.0 10^3/uL Normal 1.0-4.8 Abs Monocytes 0.4 10^3/uL Normal 0-0.8 Abs Eosinophils 0.1 10^3/uL Normal 0-0.6 Abs Basophils 0.0 10^3/uL Normal 0-0.2 Abs Nucleated RBC 0.0 10^3/uL Granulocyte % 77.1 % Lymphocyte % 15.0 % Monocyte % 6.2 % Eosinophil % 1.2 % Basophil % 0.5 % Nucleated Red Blood Cells % 0.1 1 Interpretation: Abnormal (>120.0 mcg/g) REFERENCE VALUE <=50.0 (Normal) Test Performed by: [facility] [place] [address] Closet Organizer: Bert Schreiber M.D. Ph.D.; CLIA# [id number] 2 Normal Range 180 to 914 Indeterminate Range 145 to 180 Deficient Range <145 3 Total 25-Hydroxyvitamin D2 and D3 (25-OH-VitD) <10 ng/mL (severe deficiency) 10-19 ng/mL (mild to moderate deficiency) 20-50 ng/mL (optimum levels) 51-80 ng/mL (increased risk of hypercalciuria) >80 ng/mL (toxicity possible) 4 M. tuberculosis infection NOT likely 5 Interpretation: Borderline (50.1-120.0 mcg/g) REFERENCE VALUE <=50.0 (Normal) Test Performed by: [place] [address] 6 [id number] 8 Test Performed by: [place] [address] 9 Result indicates immunity to hepatitis A infection from either vaccination or past exposure to hepatitis A. False-positive results may be observed in patients with CMV antibodies or heterophilic antibodies. REFERENCE VALUE Unvaccinated: Negative Vaccinated: Positive Test Performed by: [facility] [place] [address] 10 [id number] 11 Results suggest response to immunization or prior exposure to the virus. REFERENCE VALUE Vaccinated: Positive (>=1.1 AI) Unvaccinated: Negative (<=0.8 AI) 12 Test Performed by: [place] [address] 13 [id number] 14 Results suggest response to immunization or prior exposure to the virus. REFERENCE VALUE Vaccinated: Positive (>=1.1 AI) Unvaccinated: Negative (<=0.8 AI) 15 Test Performed by: [place] [address] 16 Results suggest response to immunization or prior exposure to the virus. REFERENCE VALUE Vaccinated: Positive (>=1.1 AI) Unvaccinated: Negative (<=0.8 AI) 17 Test Performed by: [place] [address] 18 Because ethnic data is not always readily [...] 15-29 5 Kidney failure <15 (or dialysis) Procedures Description No Information Available Medical Devices Description No Information Available Encounters Type Date Location Provider Dx Diagnosis Office Visit 04/25/2019 [facility] K50.012 Crohn's disease 2:[facility]p [facility] of small MD intestine w intestinal obstruction E61.1 Iron deficiency Office 12/13/2018 Gastroenterology Lorena K50.00 Crohn's disease Visit 8:[facility]a [facility] MD of small intestine without complications R19.7 Diarrhea, unspecified R10.31 Right lower quadrant pain Assessments Date Code Description Provider 04/25/2019 K50.012 Crohn's disease of small intestine with Lorena Trujillo MD intestinal obstruction 04/25/2019 E61.1 Iron deficiency Lorena West MD 01/31/2019 E61.1 Iron deficiency Lorena West MD 01/31/2019 K50.00 Crohn's disease of small intestine without Lorena Trujillo MD complications 01/31/2019 R19.7 Diarrhea, unspecified Lorena West MD 12/13/2018 K50.00 Crohn's disease of small intestine without Lorena Trujillo MD complications 12/13/2018 R19.7 Diarrhea, unspecified Lorena West MD 12/13/2018 R10.31 Right lower quadrant pain Lorena West MD Plan of Treatment No Information Available Functional Status Description No Information Available Mental Status Description No Information Available Referrals Description No Information Available
--- OUTSIDE RECORDS SUMMARY | 2019-06-15 19:29 | XMS REPORT | Continuity of Care Document ---
:1970 External Reference #:[id number] Author Name Lorena West MD Address [address] [place] [id number] Care Team Providers Name Role Phone Edwin Florez FNP Care Team Information Barker Peeler [phone] Tamara Renee MD Care Team Information Barker Peeler [phone] Problems Active Problems Provider Date Crohn's disease [...] 325(65Fe) mouth twice a day mg Tablets History Medications Diazepam use 1 hour prior to 1tabs Adonis Ho, 11/15/2018 - 10mg mri 12/13/2018 Tablets Colyte With Flavor by mouth as 4000ml Lorena 10/25/2018 - Packs directed MD Jenna 12/13/2018 240gm Solution Rec Medications Administered in Office Medication SIG Qnty [...] Date Facility Test Result H/L Range Note Quantiferon-T 02/10/[place] [facility] [place] Quantiferon[place]b Gold Negative Negative 1 B Gold Plus Plus Result TB1 Ag minus Nil Result -0.01 IU/mL TB2 Ag minus Nil Result 0.00 IU/mL Mitogen minus Nil Result 8.66 IU/mL Nil Result 0.03 IU/mL Laboratory test 02/10/2019 [facility] [place] Calprotectin 106.4 g/G Abnormal 2 finding CBC Auto Diff 01/31/2019 [facility] [place] White Blood Count 6.9 10^3/uL Normal 3.5- [...] % Nucleated Red Blood Cells % 0.1 Comp Metabolic Panel 01/31/2019 [facility] [place] Sodium 140 mmol/L Normal 135-145 Potassium 3.7 [...] Egfr Non- 90.4 >60 Egfr 109.4 >60 3 Mumps Igg 01/31/2019 [facility] [place] Mumps Virus IgG Antibody Positive 4 Mumps IgG Antibody Index 1.8 5 Rubeola Measles Igg AB 01/31/2019 [facility] [place] Rubeola (Measles) IgG Antibody Positive 6 Rubeola IgG Antibody Index 1.3 7 Laboratory test finding 01/31/2019 [facility] [place] Rubella Screen Immune Immune 8 Varicella Zoster Igg AB 01/31/2019 [facility] [place] Varicella-Zoster IgG Positive 9 Antibody Varicella IgG Antibody Index 7.1 10 Iron & Iron Binding Capacity 01/31/2019 [facility] [place] Iron 44 g/dL Low 50-212 Unsaturated Iron Binding < 433 g/dL Total Iron Binding Capacity 448 g/dL Normal 250-450 Transferrin 320 mg/dL Normal 203-362 % Iron Saturation 10 % Low 15-55 Laboratory test 01/31/2019 [facility] [place] Ferritin 20.9 ng/mL Low 24-336 11 finding Chronic Hepatitis 01/31/2019 [facility] [place] Hepatitis B Surface Negative Negative 12 Panel(!) Ag Hepatitis B Chikis AB Titer Not Immune Abnormal Immune 13 Hepatitis B Core AB Total Negative Negative 14 Hepatitis A Igg Antibody, Serum Positive 15 Hepatitis C Antibody 01/31/2019 [facility] [place] HCV Index 0.07 s/c Hepatitis C Antibody Negative Negative 1 M. tuberculosis infection NOT likely 2 Interpretation: Borderline (50.1-120.0 mcg/g) REFERENCE VALUE <=50.0 (Normal) Test Performed by: [facility] [address] [place] [address] 3 Because ethnic data is not always readily [...] 15-29 5 Kidney failure <15 (or dialysis) 4 Results suggest response to immunization or prior exposure to the virus. REFERENCE VALUE Vaccinated: Positive (>=1.1 AI) Unvaccinated: Negative (<=0.8 AI) 5 Test Performed by: [place] [address] 6 Results suggest response to immunization or prior exposure to the virus. REFERENCE VALUE Vaccinated: Positive (>=1.1 AI) Unvaccinated: Negative (<=0.8 AI) 7 Test Performed by: [facility] [place] [address] 8 [id number] 9 Results suggest response to immunization or prior exposure to the virus. REFERENCE VALUE Vaccinated: Positive (>=1.1 AI) Unvaccinated: Negative (<=0.8 AI) 10 Test Performed by: [place] [address] 11 [id number] 14 Test Performed by: [place] [address] 15 Result indicates immunity to hepatitis A infection from either vaccination or past exposure to hepatitis A. False-positive results may be observed in patients with CMV antibodies or heterophilic antibodies. REFERENCE VALUE Unvaccinated: Negative Vaccinated: Positive Test Performed by: [place] [address] Procedures Date Code Description Status 10/31/2018 80877 Moderate Sedation Services; Same Phys Each Additional 15 Completed Mins 10/31/2018 53173 Moderate Sedation Services; Same Phys Intl 15 Mins; PT >= Completed 5 Years 10/31/2018 57587 Colonoscopy Completed Medical Devices Description No Information Available Encounters Type Date Location Provider Dx Diagnosis Office Visit 12/13/2018 Gastroenterology Lorena K50.00 Crohn's disease of 8:45a [facility] without complications R19.7 Diarrhea, unspecified R10.31 Right [...] Right lower quadrant pain Lorena West MD 10/31/2018 R10.31 Right lower quadrant pain Lorena West MD Plan of Treatment Future Appointment(s):05/31/2019 1:15 pm - Lorena West MD at [facility]04/25/2019 - Lorena West MDK50.012 Crohn 's disease of small intestine with intestinal adtayiryqdbO21.1 Iron deficiencyNew Labs:CBC W/Auto Differential(!), Ordered: 04/25/19Iron Deficiency Iron,Tibc,Ferr, Ordered: 04/25/19C-Reative Protein, Ordered: 04/25/19Stool Calprotectin, Ordered: 04/25/19 Functional Status Description No Information Available Mental Status Description No Information Available Referrals Description No Information Available
[2019-06-15] MEDS: Magnesium Sulfate 2 GM IV* 2 GM/50 ML BAG IVPB ONE (19:58)
[2019-06-15 20:08] LABS: TSH (Thyroid Stimulating Horm) 3.56 mcIU/mL (0.34-5.60)
[2019-06-15 20:10] LABS: Free T4 0.85 ng/dL (0.61-1.12)
[2019-06-15 21:55] VITALS: BP 148/92
== END 2019-06-15 21:53 | disposition home or self-care (01) ==
LOC: ED 18:18
DX: I10 Essential (primary) hypertension (principal); K50.90 Crohn's disease, unspecified, without complications; Z79.899 Other long term (current) drug therapy; Z91.041 Radiographic dye allergy status
CPT/HCPCS: 36415; 71046; 80048; 82803; 83735; 84439; 84443; 84484; 85025; 85610; 85730; 93005; 96365; 99282; J3475